=== PATIENT | male | born 1960 | race American Indian/Alaskan Native ===

== ENCOUNTER 2017-12-10 20:29 | Emergency (ER) | payer SELFPAY ==
[2017-12-10 21:51] VITALS: BP 148/106
== END 2017-12-11 01:30 | disposition left against medical advice (07) ==
LOC: ED 20:29
DX: Z04.1 Encounter for examination and observation following transport accident (principal); Z53.21 Procedure and treatment not carried out due to patient leaving prior to being seen by health care provider; V89.2XXA Person injured in unspecified motor-vehicle accident, traffic, initial encounter; Y93.89 Activity, other specified; Y99.8 Other external cause status; Y92.410 Unspecified street and highway as the place of occurrence of the external cause

== ENCOUNTER 2019-08-19 17:52 | Inpatient (IN) | payer OTHER ==
[2019-08-19] MEDS ORDERED: ONDANSETRON 4 MG ODT TAB PO ONE (18:05)
--- NOTE | 2019-08-19 18:06 | Event Note ---
ED Screening Note Date of service: 08/19/19 ED Screening Note: This initial assessment/diagnostic orders/clinical plan/treatment(s) is/are subject to change based on patients health status, clinical progression and re- assessment by fellow clinical providers in the ED. Further treatment and workup at subsequent clinical providers discretion. Patient/guardian urged not to elope from the ED as their condition may be serious if not clinically assessed and managed. Initial orders include: 59yo BM states that he has had diarrhea, vomiting and weakness for over a week. 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
[2019-08-19] MEDS ORDERED: ONDANSETRON 4 MG ODT TAB ONE (18:07)
[2019-08-19 19:22] LABS: Basophils % (Auto) 0.4 % (0.0-1.8); Hematocrit 43.6 % (35.5-45.6); Hemoglobin 14.5 gm/dl (11.8-15.2); Lymphocytes # (Auto) 1.1 K/mm3 (1.2-5.4); Lymphocytes % (Auto) 12.2 % (13.4-35.0); Mean Corpuscular HGB Conc 33 % (32-34); Mean Corpuscular Volume 78 fl (84-94); Monocytes % (Auto) 11.6 % (0.0-7.3); Platelet Count 237 K/mm3 (140-440); Red Cell Distribution Width 13.8 % (13.2-15.2)
[2019-08-19 19:42] LABS: Albumin 3.7 g/dL (3.9-5); Calcium 9.3 mg/dL (8.4-10.2)
[2019-08-19] MEDS ORDERED: SODIUM CHLORIDE 0.9% 1000 ML IV SOLN IV ONE (20:09)
[2019-08-19] MEDS ORDERED: POTASSIUM CHLORIDE ER 20 MEQ TAB PO ONE (20:11)
[2019-08-19] MEDS ORDERED: levoFLOXacin 500 MG TAB PO ONE (20:11)
[2019-08-19] MEDS ORDERED: MAGNESIUM SULFATE 2 GM/50 ML BAG IV ONE (20:11)
--- NOTE | 2019-08-19 20:13 | Emergency Department Report ---
ED General Adult HPI - General Chief complaint: Weakness Stated complaint: VOMITTING/DIAHERRA/FEVER Time Seen by Provider: 08/19/19 19:59 Source: patient, RN notes reviewed Mode of arrival: Ambulatory Limitations: No Limitations - History of Present Illness Initial comments: This is a 59-year-old gentleman. This patient is not known to this provider pr eviously. He does not have a primary care doctor. He has no chronic medical conditions that he is aware of. He presents to the ER with one month of nausea, vomiting, diarrhea, intermittent fevers, chills, malaise and weakness. No recent travel, denies IV drug use, states only one sexual partner in the past year, no complaint of cough, no abdominal pain, he reports that he typically washes his hands after using the bathroom, and denies consumption of raw and/or undercooked food. He reports multiple episodes of nonbloody nonbilious emesis, and nonbloody diarrhea. He denies urinary symptoms. -: Gradual, week(s) Consistency: constant Improves with: rest Worsens with: eating - Related Data Previous Rx's Medication Instructions Recorded Last Taken Type ALBUTEROL Inhaler (OR & NICU) 2 puff IH QID PRN #8.5 gram 08/22/19 Unknown Rx [ProAir HFA Inhaler] Azithromycin [Zithromax TAB] 500 mg PO QDAY #5 tablet 08/22/19 Unknown Rx cefUROXime [Ceftin] 500 mg PO Q12H 7 Days 08/22/19 Unknown Rx Allergies Allergy/AdvReac Type Severity Reaction Status Date / Time No Known Allergies Allergy Unverified 12/10/17 21:45 ED Review of Systems ROS: Stated complaint: VOMITTING/DIAHERRA/FEVER Other details as noted in HPI Constitutional: fever, malaise, weakness Eyes: denies: eye discharge ENT: denies: congestion Respiratory: denies: wheezing Cardiovascular: denies: syncope Gastrointestinal: nausea, vomiting, diarrhea Genitourinary: denies: dysuria Musculoskeletal: myalgia Skin: denies: lesions Neurological: weakness Hematological/Lymphatic: denies: easy bleeding ED Past Medical Hx - Past Medical History Previous Medical History?: Yes Hx Hypertension: Yes - Surgical History Past Surgical History?: No - Social History Smoking Status: Never Smoker Substance Use Type: None - Medications Home Medications: Home Medications Medication Instructions Recorded Confirmed Last Taken Type ALBUTEROL Inhaler (OR & NICU) 2 puff IH QID PRN #8.5 gram 08/22/19 Unknown Rx [ProAir HFA Inhaler] Azithromycin [Zithromax TAB] 500 mg PO QDAY #5 tablet 08/22/19 Unknown Rx cefUROXime [Ceftin] 500 mg PO Q12H 7 Days 08/22/19 Unknown Rx ED Physical Exam - General Limitations: No Limitations General appearance: alert, anxious, in distress - Head Head exam: Present: atraumatic, normocephalic - Eye Eye exam: Present: normal appearance, EOMI. Absent: nystagmus - ENT ENT exam: Present: normal orophraynx, mucous membranes dry, normal external ear exam - Neck Neck exam: Present: normal inspection - Respiratory Respiratory exam: Present: normal lung sounds bilaterally. Absent: respiratory distress - Cardiovascular Cardiovascular Exam: Present: normal rhythm, tachycardia, normal heart sounds. Absent: systolic murmur, diastolic murmur, rubs, gallop - GI/Abdominal GI/Abdominal exam: Present: soft. Absent: distended, tenderness, guarding, rebound, rigid, pulsatile mass - Rectal Rectal exam: Present: deferred - Extremities Exam Extremities exam: Present: normal inspection, full ROM, other (2+ pulses noted in the bilateral upper, lower extremities. There is no long bone tenderness. Musculoskeletal compartments are soft. The pelvis is stable.). Absent: pedal edema, calf tenderness - Back Exam Back exam: Present: normal inspection, full ROM. Absent: tenderness, CVA tenderness (R), CVA tenderness (L), paraspinal tenderness, vertebral tenderness - Neurological Exam Neurological exam: Present: alert, normal gait, other (there is no facial droop. The tongue is midline. Extraocular movements are intact bilaterally. Patient speaking in full complete sentences. Shoulder shrug is intact bilaterally. Hearing is grossly intact bilaterally. Visual acuity intact to finger counting and color perception at a close distance. 5/5 strength 4 extremities. Sensation intact to light touch in 4 extremities.) - Psychiatric Psychiatric exam: Present: anxious - Skin Skin exam: Present: warm, dry, intact, normal color. Absent: rash ED Course Vital Signs 08/19/19 08/19/19 18:02 21:55 Temperature 98.9 F Pulse Rate 129 H 103 H Respiratory 20 18 Rate Blood Pressure 125/89 Blood Pressure 147/89 [Right] O2 Sat by Pulse 96 95 Oximetry ED Medical Decision Making - Lab Data Result diagrams: 08/22/19 10:10 08/22/19 10:10 Vital Signs 08/19/19 18:02 Temperature 98.9 F Pulse Rate 129 H Respiratory 20 Rate Blood Pressure 125/89 O2 Sat by Pulse 96 Oximetry Lab Results 08/19/19 08/19/19 08/19/19 Range/Units 18:33 18:33 20:17 WBC 8.9 (4.5-11.0) K/mm3 RBC 5.60 H (3.65-5.03) M/mm3 Hgb 14.5 (11.8-15.2) gm/dl Hct 43.6 (35.5-45.6) % MCV 78 L (84-94) fl MCH 26 L (28-32) pg MCHC 33 (32-34) % RDW 13.8 (13.2-15.2) % Plt Count 237 (140-440) K/mm3 Lymph % (Auto) 12.2 L (13.4-35.0) % [place] % (Auto) 11.6 H (0.0-7.3) % Eos % (Auto) 0.0 (0.0-4.3) % Baso % (Auto) 0.4 (0.0-1.8) % Lymph # 1.1 L (1.2-5.4) K/mm3 [place] # 1.0 H (0.0-0.8) K/mm3 Eos # 0.0 (0.0-0.4) K/mm3 Baso # 0.0 (0.0-0.1) K/mm3 Seg Neutrophils % 75.8 H (40.0-70.0) % Seg Neutrophils # 6.7 (1.8-7.7) K/mm3 PT 12.8 (12.2-14.9) Sec. INR 0.97 (0.87-1.13) APTT 37.2 H (24.2-36.6) Sec. Sodium 123 L (137-145) mmol/L Potassium 3.0 L (3.6-5.0) mmol/L Chloride 85.5 L (98-107) mmol/L Carbon Dioxide 14 L (22-30) mmol/L Anion Gap 27 mmol/L BUN 35 H (9-20) mg/dL Creatinine 2.3 H (0.8-1.5) mg/dL Estimated GFR 36 ml/min BUN/Creatinine Ratio 15 % Glucose 142 H (75-100) mg/dL Lactic Acid (0.7-2.0) mmol/L Uric Acid (3.5-7.6) mg/dL Calcium 9.3 (8.4-10.2) mg/dL Magnesium (1.7-2.3) mg/dL Total Bilirubin 0.40 (0.1-1.2) mg/dL AST 706 H (5-40) units/L ALT 732 H (7-56) units/L Alkaline Phosphatase 211 H (35-129) units/L Total Creatine Kinase (55-170) units/L Total Protein 9.4 H (6.3-8.2) g/dL Albumin 3.7 L (3.9-5) g/dL Albumin/Globulin Ratio 0.6 % TSH (0.270-4.200) mlU/mL Urine Color (Yellow) Urine Turbidity (Clear) Urine pH (5.0-7.0) Ur Specific [place] (1.003-1.030) Urine Protein (Negative) mg/dL Urine Glucose (UA) (Negative) mg/dL Urine Ketones (Negative) mg/dL Urine Blood (Negative) Urine Nitrite (Negative) Urine Bilirubin (Negative) Urine Urobilinogen (<2.0) mg/dL Ur Leukocyte Esterase (Negative) Urine WBC (Auto) (0.0-6.0) /HPF Urine RBC (Auto) (0.0-6.0) /HPF U Epithel Cells (Auto) (0-13.0) /HPF Urine Bacteria (Auto) (Negative) /HPF Urine WBC Clumps /HPF Urine Mucus /HPF Urine Yeast (Budding) /HPF Urine Osmolality Mosm/kg Urine Creatinine (0.1-20.0) mg/dL Urine Sodium mmol/L Salicylates (2.8-20.0) mg/dL Acetaminophen (10.0-30.0) ug/mL Hepatitis A IgM Ab (NonReactive) Hep Bs Antigen (Negative) Hep B Core IgM Ab (NonReactive) Hepatitis C Antibody (NonReactive) 08/19/19 08/19/1908/19/19 Range/Units 20:17 20:17 20:17 WBC (4.5-11.0) K/mm3 RBC (3.65-5.03) M/mm3 Hgb (11.8-15.2) gm/dl Hct (35.5-45.6) % MCV (84-94) fl MCH (28-32) pg MCHC (32-34) % RDW (13.2-15.2) % Plt Count (140-440) K/mm3 Lymph % (Auto) (13.4-35.0) % [place] % (Auto) (0.0-7.3) % Eos % (Auto) (0.0-4.3) % Baso % (Auto) (0.0-1.8) % Lymph # (1.2-5.4) K/mm3 [place] # (0.0-0.8) K/mm3 Eos # (0.0-0.4) K/mm3 Baso # (0.0-0.1) K/mm3 Seg Neutrophils % (40.0-70.0) % Seg Neutrophils # (1.8-7.7) K/mm3 PT (12.2-14.9) Sec. INR (0.87-1.13) APTT (24.2-36.6) Sec. Sodium (137-145) mmol/L Potassium (3.6-5.0) mmol/L Chloride (98-107) mmol/L Carbon Dioxide (22-30) mmol/L Anion Gap mmol/L BUN (9-20) mg/dL Creatinine (0.8-1.5) mg/dL Estimated GFR ml/min BUN/Creatinine Ratio % Glucose (75-100) mg/dL Lactic Acid 1.80 (0.7-2.0) mmol/L Uric Acid 12.4 H (3.5-7.6) mg/dL Calcium (8.4-10.2) mg/dL Magnesium 2.70 H (1.7-2.3) mg/dL Total Bilirubin (0.1-1.2) mg/dL AST (5-40) units/L ALT (7-56) units/L Alkaline Phosphatase (35-129) units/L Total Creatine Kinase 1567 H (55-170) units/L Total Protein (6.3-8.2) g/dL Albumin (3.9-5) g/dL Albumin/Globulin Ratio % TSH 0.848 (0.270-4.200) mlU/mL Urine Color (Yellow) Urine Turbidity (Clear) Urine pH (5.0-7.0) Ur Specific [place] (1.003-1.030) Urine Protein (Negative) mg/dL Urine Glucose (UA) (Negative) mg/dL Urine Ketones (Negative) mg/dL Urine Blood (Negative) Urine Nitrite (Negative) Urine Bilirubin (Negative) Urine Urobilinogen (<2.0) mg/dL Ur Leukocyte Esterase (Negative) Urine WBC (Auto) (0.0-6.0) /HPF Urine RBC (Auto) (0.0-6.0) /HPF U Epithel Cells (Auto) (0-13.0) /HPF Urine Bacteria (Auto) (Negative) /HPF Urine WBC Clumps /HPF Urine Mucus /HPF Urine Yeast (Budding) /HPF Urine Osmolality Mosm/kg Urine Creatinine (0.1-20.0) mg/dL Urine Sodium mmol/L Salicylates (2.8-20.0) mg/dL Acetaminophen (10.0-30.0) ug/mL Hepatitis A IgM Ab (NonReactive) Hep Bs Antigen (Negative) Hep B Core IgM Ab (NonReactive) Hepatitis C Antibody (NonReactive) 08/19/19 08/19/19 08/19/19 Range/Units 20:17 20:17 20:17 WBC (4.5-11.0) K/mm3 RBC (3.65-5.03) M/mm3 Hgb (11.8-15.2) gm/dl Hct (35.5-45.6) % MCV (84-94) fl MCH (28-32) pg MCHC (32-34) % RDW (13.2-15.2) % Plt Count (140-440) K/mm3 Lymph % (Auto) (13.4-35.0) % [place] % (Auto) (0.0-7.3) % Eos % (Auto) (0.0-4.3) % Baso % (Auto) (0.0-1.8) % Lymph # (1.2-5.4) K/mm3 [place] # (0.0-0.8) K/mm3 Eos # (0.0-0.4) K/mm3 Baso # (0.0-0.1) K/mm3 Seg Neutrophils % (40.0-70.0) % Seg Neutrophils # (1.8-7.7) K/mm3 PT (12.2-14.9) Sec. INR (0.87-1.13) APTT (24.2-36.6) Sec. Sodium (137-145) mmol/L Potassium (3.6-5.0) mmol/L Chloride (98-107) mmol/L Carbon Dioxide (22-30) mmol/L Anion Gap mmol/L BUN (9-20) mg/dL Creatinine (0.8-1.5) mg/dL Estimated GFR ml/min BUN/Creatinine Ratio % Glucose (75-100) mg/dL Lactic Acid (0.7-2.0) mmol/L Uric Acid (3.5-7.6) mg/dL Calcium (8.4-10.2) mg/dL Magnesium (1.7-2.3) mg/dL Total Bilirubin (0.1-1.2) mg/dL AST (5-40) units/L ALT (7-56) units/L Alkaline Phosphatase (35-129) units/L Total Creatine Kinase (55-170) units/L Total Protein (6.3-8.2) g/dL Albumin (3.9-5) g/dL Albumin/Globulin Ratio % TSH (0.270-4.200) mlU/mL Urine Color (Yellow) Urine Turbidity (Clear) Urine pH (5.0-7.0) Ur Specific [place] (1.003-1.030) Urine Protein (Negative) mg/dL Urine Glucose (UA) (Negative) mg/dL Urine Ketones (Negative) mg/dL Urine Blood (Negative) Urine Nitrite (Negative) Urine Bilirubin (Negative) Urine Urobilinogen (<2.0) mg/dL Ur Leukocyte Esterase (Negative) Urine WBC (Auto) (0.0-6.0) /HPF Urine RBC (Auto) (0.0-6.0) /HPF U Epithel Cells (Auto) (0-13.0) /HPF Urine Bacteria (Auto) (Negative) /HPF Urine WBC Clumps /HPF Urine Mucus /HPF Urine Yeast (Budding) /HPF Urine Osmolality Mosm/kg Urine Creatinine (0.1-20.0) mg/dL Urine Sodium mmol/L Salicylates < 0.3 L (2.8-20.0) mg/dL Acetaminophen < 5.0 L (10.0-30.0) ug/mL Hepatitis A IgM Ab Non-reactive (NonReactive) Hep Bs Antigen Non-reactive (Negative) Hep B Core IgM Ab Non-reactive (NonReactive) Hepatitis C Antibody Non-reactive (NonReactive) 08/19/19 08/19/19 Range/Units Unknown Unknown WBC (4.5-11.0) K/mm3 RBC (3.65-5.03) M/mm3 Hgb (11.8-15.2) gm/dl Hct (35.5-45.6) % MCV (84-94) fl MCH (28-32) pg MCHC (32-34) % RDW (13.2-15.2) % Plt Count (140-440) K/mm3 Lymph % (Auto) (13.4-35.0) % [place] % (Auto) (0.0-7.3) % Eos % (Auto) (0.0-4.3) % Baso % (Auto) (0.0-1.8) % Lymph # (1.2-5.4) K/mm3 [place] # (0.0-0.8) K/mm3 Eos # (0.0-0.4) K/mm3 Baso # (0.0-0.1) K/mm3 Seg Neutrophils % (40.0-70.0) % Seg Neutrophils # (1.8-7.7) K/mm3 PT (12.2-14.9) Sec. INR (0.87-1.13) APTT (24.2-36.6) Sec. Sodium (137-145) mmol/L Potassium (3.6-5.0) mmol/L Chloride (98-107) mmol/L Carbon Dioxide (22-30) mmol/L Anion Gap mmol/L BUN (9-20) mg/dL Creatinine (0.8-1.5) mg/dL Estimated GFR ml/min BUN/Creatinine Ratio % Glucose (75-100) mg/dL Lactic Acid (0.7-2.0) mmol/L Uric Acid (3.5-7.6) mg/dL Calcium (8.4-10.2) mg/dL Magnesium (1.7-2.3) mg/dL Total Bilirubin (0.1-1.2) mg/dL AST (5-40) units/L ALT (7-56) units/L Alkaline Phosphatase (35-129) units/L Total Creatine Kinase (55-170) units/L Total Protein (6.3-8.2) g/dL Albumin (3.9-5) g/dL Albumin/Globulin Ratio % TSH (0.270-4.200) mlU/mL Urine Color [place] (Yellow) Urine Turbidity Cloudy (Clear) Urine pH 5.0 (5.0-7.0) Ur Specific [place] 1.020 (1.003-1.030) Urine Protein >500 (Negative) mg/dL Urine Glucose (UA) Neg (Negative) mg/dL Urine Ketones Neg (Negative) mg/dL Urine Blood Lg (Negative) Urine Nitrite Neg (Negative) Urine Bilirubin Neg (Negative) Urine Urobilinogen < 2.0 (<2.0) mg/dL Ur Leukocyte Esterase Neg (Negative) Urine WBC (Auto) 17.0 H (0.0-6.0) /HPF Urine RBC (Auto) 6.0 (0.0-6.0) /HPF U Epithel Cells (Auto) 6.0 (0-13.0) /HPF Urine Bacteria (Auto) 1+ (Negative) /HPF Urine WBC Clumps 2+ /HPF Urine Mucus Few /HPF Urine Yeast (Budding) 2+ /HPF Urine Osmolality 342 Mosm/kg Urine Creatinine 463.6 H (0.1-20.0) mg/dL Urine Sodium 10 mmol/L Salicylates (2.8-20.0) mg/dL Acetaminophen (10.0-30.0) ug/mL Hepatitis A IgM Ab (NonReactive) Hep Bs Antigen (Negative) Hep B Core IgM Ab (NonReactive) Hepatitis C Antibody (NonReactive) - EKG Data -: EKG Interpreted by Sd Rate: tachycardia - EKG Data When compared to previous EKG there are: previous EKG unavailable 08/19/19 21:18 There is no prior EKG available for comparison. The EKG shows a sinus tachycardia, left axis deviation, QTC is prolonged, left ventricular hypertrophy, atrial enlargement, the EKG is abnormal, the EKG is not consistent with a stemi - Radiology Data Radiology results: report reviewed, image reviewed Print Report Referring Physician: DENISE NERI Patient Name: MOLLY HERRERA Date of : 1960 Sex: Male Report Date: 2019-08-19 Report Status: Finalized Findings [facility] [address] [place] [address] XRay Report Signed Patient: MOLLY HERRERA JR MR# : [id number] : 1960 Acct:[id number] Age/Sex: 59 / M ADM Date: 08/19/19 Loc: ED Attending Dr: Ordering Physician: DENISE NERI MD Date of Service: 08/19/19 Procedure(s): XR chest 1V ap Accession Number(s): [id number] cc: DENISE NERI MD Fluoro Time In Minutes: CHEST 1 VIEW 08/19/2019 8:36 PM INDICATION / CLINICAL INFORMATION: n/v/d weak sepsis. COMPARISON: None available. FINDINGS: SUPPORT DEVICES: None. HEART / MEDIASTINUM: No significant abnormality. LUNGS / PLEURA: There is hazy parenchymal opacity in the left midlung. The right lung is clear. No pneumothorax. ADDITIONAL FINDINGS: No significant additional findings. IMPRESSION: 1. Hazy left midlung parenchymal opacity most likely reflecting developing infectious or inflammatory process. Signer Name: Kale Duncan MD Signed: 08/19/2019 8:53 PM Workstation Name: [id number] Transcribed By: CARLOS Dictated By: Kale Duncan MD Electronically Authenticated By: Kale Duncan MD Signed Date/Time: 08/19/192052 - Medical Decision Making Differential diagnosis, including not limited to: Viral syndrome, hepatitis, HIV, pneumonia, urinary tract infection, dehydration, transaminitis, influenza- like illness, C. difficile Assessment and plan: 59-year-old gentleman with 1 month of painless nausea, vomiting, diarrhea, malaise and fatigue. He is afebrile, with a history of fever at home, relieved with [id number] antipyretics, found to be tachycardic, tachypnea, with evidence of end organ dysfunction, manifest by transaminitis, renal insufficiency. He has given verbal consent for HIV testing and additional testing. He is amenable to hospitalization for further diagnostic evaluation, and supportive care. Patient will be resuscitated according to sepsis pathway. IV fluids, empiric antibiotics resuscitative measures are ordered. Case presented to Hospital physician, Dr. Sanchez, who has accepted the patient to the medical service. Critical care attestation.: If time is entered above; I have spent that time in minutes in the direct care of this critically ill patient, excluding procedure time. ED Disposition Clinical Impression: SIRS (systemic inflammatory response syndrome), Acute renal failure, Hyponatremia, Transaminitis, Hypokalemia Disposition: [id number] OP ADMIT IP TO THIS HOSP Is pt being admited?: Yes Condition: Fair
[2019-08-19 20:45] LABS: INR 0.97 (0.87-1.13)
[2019-08-19] MEDS ORDERED: ONDANSETRON 4 MG/2 ML INJ IV PRN (20:45)
[2019-08-19] MEDS ORDERED: ALBUTEROL 2.5 MG/3 ML NEBU IH PRN (20:45)
[2019-08-19] MEDS ORDERED: ACETAMINOPHEN 325 MG TAB PO PRN (20:45)
[2019-08-19 20:47] LABS: Partial Thromboplastin Time 37.2 Sec. (24.2-36.6)
[2019-08-19 20:48] LABS: Bacteria,Urine 1+ /HPF (Negative); Bilirubin,Urine NEG (Negative); Blood,Urine LG (Negative); Color,Urine Amber (Yellow); Mucus,Urine FEW /HPF; Urobilinogen,Urine < 2.0 mg/dL (<2.0)
[2019-08-19 20:49] LABS: Protein,Urine >500 mg/dL (Negative)
[2019-08-19 20:52] LABS: Uric Acid 12.4 mg/dL (3.5-7.6)
[2019-08-19 20:53] LABS: Creatinine,Urine 463.6 mg/dL (0.1-20.0)
--- NOTE | 2019-08-19 20:58 | XRay Report ---
CHEST 1 VIEW 08/19/2019 8:36 PM INDICATION / CLINICAL INFORMATION: n/v/d weak sepsis. COMPARISON: None available. FINDINGS: SUPPORT DEVICES: None. HEART / MEDIASTINUM: No significant abnormality. LUNGS / PLEURA: There is hazy parenchymal opacity in the left midlung. The right lung is clear. No pn eumothorax. ADDITIONAL FINDINGS: No significant additional findings. IMPRESSION: 1. Hazy left midlung parenchymal opacity most likely reflecting developing infectious or inflammatory process. Signer Name: Kale Duncan MD Signed: 08/19/2019 8:53 PM Workstation Name: [id number]
[2019-08-19] MEDS ORDERED: metroNIDAZOLE/NS 500 MG/100 ML 500 MG/100 ML BAG IV SCH (21:00)
[2019-08-19] MEDS ORDERED: SODIUM BICARB 8.4% 50 MEQ/50 ML SYRINGE IV ONE (21:00)
[2019-08-19 21:03] LABS: Hepatitis B Surface Antigen Non-Reactive (Negative); Hepatitis C Virus Antibody Non-Reactive (NonReactive)
[2019-08-19] MEDS: POTASSIUM CHLORIDE 10 MEQ 10 MEQ/100 ML BAG IV SCH (21:05)
[2019-08-19 21:20] LABS: Albumin 3.8 g/dL (3.9-5)
[2019-08-19 21:21] LABS: Bilirubin,Direct < 0.2 mg/dL (0-0.2)
[2019-08-19 21:32] LABS: Alanine Aminotransferase 779 units/L (7-56)
--- NOTE | 2019-08-19 21:43 | History and Physical Report ---
History of Present Illness Date of admission: 08/19/19 20:45 Chief complaint: I dont feel good History of present illness: 59 YO Male with HTN presents to ED for evaluation. Pt states that he has experienced multiple episodes of vomiting, nausea, diarrhea, subjective fever, chills, malaise and weakness over the past 1 month with persistent symptoms over the same time frame. Pt also reports 20lbs weight loss over the past 6 weeks. Pt transported to [facility] via private vehicle. Pt seen and evaluated in ED and found to have FRANKLIN, Acidosis, and elevated Liver Function tests. Pt placed in observation status, and admitted to medical floor. Pt denies chest pain, palpitations, trauma, BRBPR, ingestion of food/water from new or different sources, HIV risk factory, IV drug use, or known ill contacts. No prior admission for review. No medication listed at time of admission for reconciliation. Past History Past Medical History: other (see hpi) Past Surgical History: No surgical history, Other (reviewed) Social history: single. denies: smoking, alcohol abuse, prescription drug abuse Family history: hypertension Medications and Allergies Allergies Allergy/AdvReac Type Severity Reaction Status Date / Time No Known Allergies Allergy Unverified 12/10/17 21:45 Active Meds: Active Medications Acetaminophen (Tylenol) 650 mg PO Q4H PRN PRN Reason: Pain MILD(1-3)/Fever >100.5/TONG Albuterol (Proventil) 2.5 mg IH Q4HRT PRN PRN Reason: Shortness Of Breath Metronidazole (Flagyl 500 Mg/100 Ml) 500 mg in 100 mls @ 100 mls/hr IV NOW MICHELINE; Protocol Potassium Chloride (Kcl 10meq/100ml) 10 meq in 100 mls @ 100 mls/hr IV Q1H MICHELINE Stop: 08/20/19 00:59 Last Admin: 08/19/19 21:05 Dose: 100 mls/hr Documented by: Sodium Chloride (Nacl 0.9% 1000 Ml) 1,000 mls @ 100 mls/hr IV DIRECT MICHELINE Ondansetron HCl (Zofran) 4 mg IV Q8H PRN PRN Reason: Nausea And Vomiting Sodium Chloride (Sodium Chloride Flush Syringe 10 Ml) 10 ml IV BID MICHELINE Sodium Chloride (Sodium Chloride Flush Syringe 10 Ml) 10 ml IV PRN PRN PRN Reason: LINE FLUSH Review of Systems Constitutional: weight loss, fever, weakness, malaise, no weight gain, no chills Ears, nose, mouth and throat: no ear pain, no ear discharge, no decreased hearing Cardiovascular: no chest pain, no orthopnea, no palpitations Respiratory: no cough, no cough with sputum, no excessive sputum, no shortness of breath Gastrointestinal: nausea, vomiting, diarrhea, no abdominal pain, no constipation, no change in bowel habits Genitourinary Male: no hematuria, no flank pain, no discharge, no urinary frequency, no nocturia Rectal: no pain, no incontinence, no bleeding Musculoskeletal: no neck stiffness, no neck pain, no shooting arm pain, no arm numbness/tingling, no low back pain Integumentary: no rash, no pruritis, no redness, no sores, no jaundice Neurological: no transient paralysis, no weakness, no numbness, no tingling, no tremors Psychiatric: no anxiety, no memory loss, no change in sleep habits, no insomnia, no change in libido Endocrine: no cold intolerance, no polyphagia, no polydipsia Hematologic/Lymphatic: no easy bruising, no easy bleeding Allergic/Immunologic: no urticaria, no allergic rhinitis Exam - Constitutional Vitals: Temp Pulse Resp BP Pulse Ox 98.9 F 129 H 20 125/89 96 08/19/19 18:02 08/19/19 18:02 08/19/19 18:02 08/19/19 18:02 08/19/19 18:02 General appearance: Present: mild distress, cachectic - EENT Eyes: Present: PERRL ENT: hearing intact, clear oral mucosa - Neck Neck: Present: supple, normal ROM - Respiratory Respiratory effort: normal Respiratory: bilateral: CTA - Cardiovascular Heart Sounds: Present: S1 & S2. Absent: rub, click - Extremities Extremities: pulses symmetrical, No edema Peripheral Pulses: within normal limits - Abdominal General gastrointestinal: Present: soft, non-tender, non-distended, normal bowel sounds Male genitourinary: Present: normal - Integumentary Integumentary: Present: clear, warm, dry - Musculoskeletal Musculoskeletal: gait normal, strength equal bilaterally - Psychiatric Psychiatric: appropriate mood/affect, intact judgment & insight - Neurologic Neurologic: CNII-XII intact, moves all extremities Results - Labs CBC & Chem 7: 08/19/19 18:33 08/19/19 18:33 Labs: Abnormal lab results 08/19/19 08/19/19 08/19/19 Range/Units 18:33 18:33 20:17 RBC 5.60 H (3.65-5.03) M/mm3 MCV 78 L (84-94) fl MCH 26 L (28-32) pg Lymph % (Auto) 12.2 L (13.4-35.0) % Coleman % (Auto) 11.6 H (0.0-7.3) % Lymph # 1.1 L (1.2-5.4) K/mm3 Coleman # 1.0 H (0.0-0.8) K/mm3 Seg Neutrophils % 75.8 H (40.0-70.0) % APTT 37.2 H (24.2-36.6) Sec. Sodium 123 L (137-145) mmol/L Potassium 3.0 L (3.6-5.0) mmol/L Chloride 85.5 L (98-107) mmol/L Carbon Dioxide 14 L (22-30) mmol/L BUN 35 H (9-20) mg/dL Creatinine 2.3 H (0.8-1.5) mg/dL Glucose 142 H (75-100) mg/dL Uric Acid (3.5-7.6) mg/dL Magnesium (1.7-2.3) mg/dL AST 706 H (5-40) units/L ALT 732 H (7-56) units/L Alkaline Phosphatase 211 H (35-129) units/L Total Creatine Kinase (55-170) units/L Total Protein 9.4 H (6.3-8.2) g/dL Albumin 3.7 L (3.9-5) g/dL Urine WBC (Auto) (0.0-6.0) /HPF Urine Creatinine (0.1-20.0) mg/dL Salicylates (2.8-20.0) mg/dL Acetaminophen (10.0-30.0) ug/mL 08/19/19 08/19/19 08/19/19 Range/Units 20:17 20:17 20:17 RBC (3.65-5.03) M/mm3 MCV (84-94) fl MCH (28-32) pg Lymph % (Auto) (13.4-35.0) % Coleman % (Auto) (0.0-7.3) % Lymph # (1.2-5.4) K/mm3 Coleman # (0.0-0.8) K/mm3 Seg Neutrophils % (40.0-70.0) % APTT (24.2-36.6) Sec. Sodium (137-145) mmol/L Potassium (3.6-5.0) mmol/L Chloride (98-107) mmol/L Carbon Dioxide (22-30) mmol/L BUN (9-20) mg/dL Creatinine (0.8-1.5) mg/dL Glucose (75-100) mg/dL Uric Acid 12.4 H (3.5-7.6) mg/dL Magnesium 2.70 H (1.7-2.3) mg/dL AST (5-40) units/L ALT (7-56) units/L Alkaline Phosphatase (35-129) units/L Total Creatine Kinase 1567 H (55-170) units/L Total Protein (6.3-8.2) g/dL Albumin (3.9-5) g/dL Urine WBC (Auto) (0.0-6.0) /HPF Urine Creatinine (0.1-20.0) mg/dL Salicylates < 0.3 L (2.8-20.0) mg/dL Acetaminophen < 5.0 L (10.0-30.0) ug/mL 08/19/19 08/19/19 08/19/19 Range/Units 20:40 Unknown Unknown RBC (3.65-5.03) M/mm3 MCV (84-94) fl MCH (28-32) pg Lymph % (Auto) (13.4-35.0) % Coleman % (Auto) (0.0-7.3) % Lymph # (1.2-5.4) K/mm3 Coleman # (0.0-0.8) K/mm3 Seg Neutrophils % (40.0-70.0) % APTT (24.2-36.6) Sec. Sodium (137-145) mmol/L Potassium (3.6-5.0) mmol/L Chloride (98-107) mmol/L Carbon Dioxide (22-30) mmol/L BUN (9-20) mg/dL Creatinine (0.8-1.5) mg/dL Glucose (75-100) mg/dL Uric Acid (3.5-7.6) mg/dL Magnesium (1.7-2.3) mg/dL AST 742 H (5-40) units/L ALT 779 H (7-56) units/L Alkaline Phosphatase 218 H (35-129) units/L Total Creatine Kinase (55-170) units/L Total Protein 9.4 H (6.3-8.2) g/dL Albumin 3.8 L (3.9-5) g/dL Urine WBC (Auto) 17.0 H (0.0-6.0) /HPF Urine Creatinine 463.6 H (0.1-20.0) mg/dL Salicylates (2.8-20.0) mg/dL Acetaminophen (10.0-30.0) ug/mL Assessment and Plan - Patient Problems (1) FRANKLIN (acute kidney injury) Current Visit: Yes Status: Acute Plan to address problem: IVF resuscitation therapy, monitor uop q shift, repeat bmp, monitor uop q shift, urine electrolytes, HIV serology, (2) Acidosis Current Visit: Yes Status: Acute Plan to address problem: IVF resuscitation therapy, IV bicarbonate therapy. repeat bmp. (3) Hypokalemia Current Visit: Yes Status: Acute Plan to address problem: Repleted in ED, repeat bmp (4) Elevated liver enzymes Current Visit: Yes Status: Acute Plan to address problem: Hepatitis panel, LFT, supportive care, HIV testing, (5) DVT prophylaxis Current Visit: Yes Status: Acute Plan to address problem: SCD to BLE while in bed, Pt ambulatory
[2019-08-19] MEDS ORDERED: ONDANSETRON 4 MG/2 ML INJ ONE (22:05)
[2019-08-19] MEDS: SODIUM CHLORIDE 0.9% 1000 ML 1,000 ML IV SCH (23:35)
[2019-08-20] MEDS: POTASSIUM CHLORIDE 10 MEQ 10 MEQ/100 ML BAG IV SCH ×6 (00:56→16:01)
--- NOTE | 2019-08-20 01:24 | Event Note ---
Date: 08/20/19 Notified about patient with recurrent fever. Appears that current work up is to rule out C.DIFF. Lab review shows possible UTI. Hx of ETOH use, two beers a day but none in a week . will start on Emperic abx, while awaiting further work up Check labs.
[2019-08-20] MEDS: cefTRIAXone/NS 1 GM/50 ML 1 GM/50 ML BAG IV SCH ×2 (02:23→16:08)
[2019-08-20 04:23] LABS: Hematocrit 36.7 % (35.5-45.6); Hemoglobin 12.4 gm/dl (11.8-15.2); Mean Corpuscular HGB Conc 34 % (32-34); Mean Corpuscular Volume 78 fl (84-94); Platelet Count 184 K/mm3 (140-440); Red Blood Count 4.74 M/mm3 (3.65-5.03); Red Cell Distribution Width 13.8 % (13.2-15.2)
[2019-08-20 04:50] LABS: Albumin 2.9 g/dL (3.9-5); Calcium 8.1 mg/dL (8.4-10.2)
[2019-08-20] MEDS ORDERED: POTASSIUM CHLORIDE ER 20 MEQ TAB PO ONE (05:46)
[2019-08-20] MEDS: metroNIDAZOLE/NS 500 MG/100 ML 500 MG/100 ML BAG IV SCH ×3 (05:53→21:46)
[2019-08-20] MEDS: VANCOMYCIN 250 MG/10 ML ORAL LIQD PO SCH ×4 (05:53→19:20)
--- NOTE | 2019-08-20 10:33 | Progress Note ---
Assessment and Plan Assessment and plan: Acute kidney injury IVF resuscitation therapy, monitor uop q shift, repeat bmp, monitor uop q shift, urine electrolytes, HIV serology, Acidosis IVF resuscitation therapy, IV bicarbonate therapy. repeat bmp. Hypokalemia Repeat bmp Hyponatremia Repeat in am Elevated liver enzymes Hepatitis panel, LFT, supportive care, HIV testing, Consult GI weight loss for 1 month HIV ordered DVT prophylaxis SCD to BLE while in bed, Pt ambulatory History Interval history: Weight loss, nausea, vomiting, diarrhea, fever weakness all for 1 month Hospitalist Physical - Physical exam Narrative exam: Gen: Not in acute distress, lying in bed, HEENT: Normocephalic, atraumatic Neck: supple, no JVD Heart: S1 and S2 reg, no murmurs, rubs or gallop Lungs: Clear to auscultation, Abd: soft, non tender, non distended, normal BS, Ext: No edema, no clubbing, no cyanosis Neuro: Awake, alert, oriented X 3, normal speech. moves all ext - Constitutional Vitals: Temp Pulse Resp BP Pulse Ox 98.4 F 82 16 123/80 98 08/20/19 05:45 08/20/19 05:45 08/20/19 05:45 08/20/19 05:45 08/20/19 05:45 General appearance: Present: mild distress, cachectic Results - Labs CBC & Chem 7: 08/21/19 07:27 08/21/19 07:27 Labs: Laboratory Last Values WBC 6.5 K/mm3 (4.5-11.0) 08/20/19 04:12 RBC 4.74 M/mm3 (3.65-5.03) 08/20/19 04:12 Hgb 12.4 gm/dl (11.8-15.2) 08/20/19 04:12 Hct 36.7 % (35.5-45.6) D 08/20/19 04:12 MCV 78 fl (84-94) L 08/20/19 04:12 MCH 26 pg (28-32) L 08/20/19 04:12 MCHC 34 % (32-34) 08/20/19 04:12 RDW 13.8 % (13.2-15.2) 08/20/19 04:12 Plt Count 184 K/mm3 (140-440) 08/20/19 04:12 Lymph % (Auto) 12.2 % (13.4-35.0) L 08/19/19 18:33 [place] % (Auto) 11.6 % (0.0-7.3) H 08/19/19 18:33 Eos % (Auto) 0.0 % (0.0-4.3) 08/19/19 18:33 Baso % (Auto) 0.4 % (0.0-1.8) 08/19/19 18:33 Lymph # 1.1 K/mm3 (1.2-5.4) L 08/19/19 18:33 [place] # 1.0 K/mm3 (0.0-0.8) H 08/19/19 18:33 Eos # 0.0 K/mm3 (0.0-0.4) 08/19/19 18:33 Baso # 0.0 K/mm3 (0.0-0.1) 08/19/19 18:33 Seg Neutrophils % 75.8 % (40.0-70.0) H 08/19/19 18:33 Seg Neutrophils # 6.7 K/mm3 (1.8-7.7) 08/19/19 18:33 PT 12.8 Sec. (12.2-14.9) 08/19/19 20:17 INR 0.97 (0.87-1.13) 08/19/19 20:17 APTT 37.2 Sec. (24.2-36.6) H 08/19/19 20:17 Sodium 130 mmol/L (137-145) L D 08/20/19 04:12 Potassium 2.8 mmol/L (3.6-5.0) L* 08/20/19 04:12 Chloride 97.8 mmol/L (98-107) L 08/20/19 04:12 Carbon Dioxide 14 mmol/L (22-30) L 08/20/19 04:12 Anion Gap 21 mmol/L 08/20/19 04:12 BUN 31 mg/dL (9-20) H 08/20/19 04:12 Creatinine 1.8 mg/dL (0.8-1.5) H 08/20/19 04:12 Estimated GFR 47 ml/min 08/20/19 04:12 BUN/Creatinine Ratio 17 % 08/20/19 04:12 Glucose 118 mg/dL (75-100) H 08/20/19 04:12 Lactic Acid 1.80 mmol/L (0.7-2.0) 08/19/19 23:05 Uric Acid 12.4 mg/dL (3.5-7.6) H 08/19/19 20:17 Calcium 8.1 mg/dL (8.4-10.2) L 08/20/19 04:12 Magnesium 2.70 mg/dL (1.7-2.3) H 08/19/19 20:17 Total Bilirubin 0.30 mg/dL (0.1-1.2) 08/20/19 04:12 Direct Bilirubin < 0.2 mg/dL (0-0.2) 08/19/19 20:40 Indirect Bilirubin 0.2 mg/dL 08/19/19 20:40 AST 566 units/L (5-40) H 08/20/19 04:12 ALT 598 units/L (7-56) H 08/20/19 04:12 Alkaline Phosphatase 168 units/L (35-129) H 08/20/19 04:12 Total Creatine Kinase 1548 units/L (55-170) H 08/20/19 04:12 Total Protein 7.6 g/dL (6.3-8.2) 08/20/19 04:12 Albumin 2.9 g/dL (3.9-5) L 08/20/19 04:12 Albumin/Globulin Ratio 0.6 % 08/20/19 04:12 TSH 0.848 mlU/mL (0.270-4.200) 08/19/19 20:17 Urine Color Brigitte (Yellow) 08/19/19 Unknown Urine Turbidity Cloudy (Clear) 08/19/19 Unknown Urine pH 5.0 (5.0-7.0) 08/19/19 Unknown Ur Specific [place] 1.020 (1.003-1.030) 08/19/19 Unknown Urine Protein >500 mg/dL (Negative) 08/19/19 Unknown Urine Glucose (UA) Neg mg/dL (Negative) 08/19/19 Unknown Urine Ketones Neg mg/dL (Negative) 08/19/19 Unknown Urine Blood Lg (Negative) 08/19/19 Unknown Urine Nitrite Neg (Negative) 08/19/19 Unknown Urine Bilirubin Neg (Negative) 08/19/19 Unknown Urine Urobilinogen < 2.0 mg/dL (<2.0) 08/19/19 Unknown Ur Leukocyte Esterase Neg (Negative) 08/19/19 Unknown Urine WBC (Auto) 17.0 /HPF (0.0-6.0) H 08/19/19 Unknown Urine RBC (Auto) 6.0 /HPF (0.0-6.0) 08/19/19 Unknown U Epithel Cells (Auto) 6.0 /HPF (0-13.0) 08/19/19 Unknown Urine Bacteria (Auto) 1+ /HPF (Negative) 08/19/19 Unknown Urine WBC Clumps 2+ /HPF 08/19/19 Unknown Urine Mucus Few /HPF 08/19/19 Unknown Urine Yeast (Budding) 2+ /HPF 08/19/19 Unknown Urine Osmolality 342 Mosm/kg 08/19/19 Unknown Urine Creatinine 463.6 mg/dL (0.1-20.0) H 08/19/19 Unknown Urine Sodium 10 mmol/L 08/19/19 Unknown Salicylates < 0.3 mg/dL (2.8-20.0) L 08/19/19 20:17 Acetaminophen < 5.0 ug/mL (10.0-30.0) L 08/19/19 20:17 C. difficile Toxin A&B Cancelled 08/19/19 Unknown Hepatitis A IgM Ab Non-reactive (NonReactive) 08/19/19 20:17 Hep Bs Antigen Non-reactive (Negative) 08/19/19 20:17 Hep B Core IgM Ab Non-reactive (NonReactive) 08/19/19 20:17 Hepatitis C Antibody Non-reactive (NonReactive) 08/19/19 20:17 Influenza A (Rapid) Negative (Negative) 08/19/19 Unknown Influenza B (Rapid) Negative (Negative) 08/19/19 Unknown Active Medications - Current Medications Current Medications: Generic Name Dose Route Start Last Admin Trade Name Freq PRN Reason Stop Dose Admin Acetaminophen 650 mg 08/19/19 20:45 08/19/19 23:35 Tylenol PO 650 mg Q4H PRN Administration Pain MILD(1-3)/Fever >100.5/TONG Albuterol 2.5 mg 08/19/19 20:45 Proventil IH Q4HRT PRN Shortness Of Breath Sodium Chloride 1,000 mls @ 100 mls/hr 08/19/19 21:00 08/19/19 23:35 Nacl 0.9% 1000 Ml IV 100 mls/hr DIRECT MICHELINE Administration Metronidazole 500 mg in 100 mls @ 100 mls/hr 08/20/19 06:00 08/20/19 05:53 Flagyl 500 Mg/100 Ml IV 100 mls/hr Q8HR MICHELINE Administration Protocol Ceftriaxone Sodium 1 gm in 50 mls @ 100 mls/hr 08/20/19 01:34 08/20/19 02:23 Rocephin/Ns 1 Gm/50 Ml IV 100 mls/hr Q24HR MICHELINE Administration Protocol Potassium Chloride 10 meq in 100 mls @ 100 mls/hr 08/20/19 10:00 08/20/19 10:12 Kcl 10meq/100ml IV 08/20/19 13:59 100 mls/hr Q1H MICHELINE Administration Ondansetron HCl 4 mg 08/19/19 20:45 08/19/19 22:09 Zofran IV 4 mg Q8H PRN Administration Nausea And Vomiting Sodium Chloride 10 ml 08/19/19 22:00 08/20/19 10:12 Sodium Chloride Flush Syringe 10 Ml IV 10 ml BID MICHELINE Administration Sodium Chloride 10 ml 08/19/19 20:45 Sodium Chloride Flush Syringe 10 Ml IV PRN PRN LINE FLUSH Vancomycin HCl 125 mg 08/20/19 06:00 08/20/19 05:53 Vancomycin Po PO 125 mg Q6HR MICHELINE Administration
[2019-08-20] MEDS: HEPARIN 5,000 UNIT/1 ML VIAL SUB-Q SCH ×2 (15:55→21:57)
--- NOTE | 2019-08-20 16:07 | Gastroenterology Consultation ---
History of Present Illness - Reason for Consult Consult date: 08/20/19 Abnormal LFTs, Weight Loss Requesting physician: DENISE TSANG - History of Present Illness The patient is a 59 yo male with no PMHx except HTN. He was admitted with a 1 month hx of weight loss (20 pounds), anorexia, intermittent emesis, and diarrhea. The symptoms were out of the blue per the patient, and he had no preceeding symptoms. On admit, he had a fever, but also abnl kidney/liver function, and severe hyponatremia. He denies significant abdominal pain or anorexia, and had just finished his entire lunch before my exam. He has no blood in the stool, and has had a negative colonoscopy (x 2) and EGD (x 1) as part of his routine health maintenance at the [facility]. 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 He denies CP, cough, or SOB, but the CXray on admit showed L-sided haziness. He has not had an episode of diarrhea since being on the medical floor. There are no new medications, and he denies OTC herbals. He has no family hx of GI cancer. He is a former smoker, and consumes mild EtOH (<10 beers per week). Past History Past Medical History: hypertension Past Surgical History: No surgical history Social history: single. denies: smoking, alcohol abuse, prescription drug abuse Family history: hypertension. denies: cancer Medications and Allergies Allergies Allergy/AdvReac Type Severity Reaction Status Date / Time No Known Allergies Allergy Unverified 12/10/17 21:45 Active Meds: Active Medications Acetaminophen (Tylenol) 650 mg PO Q6H PRN PRN Reason: Pain MILD(1-3)/Fever >100.5/TONG Albuterol (Proventil) 2.5 mg IH Q4HRT PRN PRN Reason: Shortness Of Breath Heparin Sodium (Porcine) (Heparin) 5,000 unit SUB-Q Q12HR [facility] Last Admin: 08/20/19 15:55 Dose: 5,000 unit Documented by: Sodium Chloride (Nacl 0.9% 1000 Ml) 1,000 mls @ 100 mls/hr IV DIRECT [facility] Last Admin: 08/19/19 23:35 Dose: 100 mls/hr Documented by: Metronidazole (Flagyl 500 Mg/100 Ml) 500 mg in 100 mls @ 100 mls/hr IV Q8HR [facility]; Protocol Last Admin: 08/20/19 14:28 Dose: 100 mls/hr Documented by: Ceftriaxone Sodium (Rocephin/Ns 1 Gm/50 Ml) 1 gm in 50 mls @ 100 mls/hr IV Q24HR [facility]; Protocol Last Admin: 08/20/19 02:23 Dose: 100 mls/hr Documented by: Ondansetron HCl (Zofran) 4 mg IV Q8H PRN PRN Reason: Nausea And Vomiting Last Admin: 08/19/19 22:09 Dose: 4 mg Documented by: Sodium Chloride (Sodium Chloride Flush Syringe 10 Ml) 10 ml IV BID [facility] Last Admin: 08/20/19 10:12 Dose: 10 ml Documented by: Sodium Chloride (Sodium Chloride Flush Syringe 10 Ml) 10 ml IV PRN PRN PRN Reason: LINE FLUSH Vancomycin HCl (Vancomycin Po) 125 mg PO Q6HR [facility] Last Admin: 08/20/19 14:23 Dose: Not Given Documented by: I HAVE REVIEWED AND RECONCILED HOME MEDICATIONS Review of Systems - Review of Systems All systems: negative (as noted in the HPI.) Exam - Constitutional Vital Signs: Temp Pulse Resp BP Pulse Ox 99.3 F 97 H 19 138/83 97 08/20/19 10:27 08/20/19 10:27 08/20/19 10:27 08/20/19 10:27 08/20/19 11:37 General appearance: no acute distress - EENT Eyes: PERRL, EOM intact ENT: hearing intact, clear oral mucosa, no thrush - Neck Neck: supple, normal ROM - Respiratory Respiratory effort: normal Respiratory: bilateral: CTA - Cardiovascular Rhythm: regular Heart Sounds: Present: S1 & S2 Extremities: no ischemia, No edema - Gastrointestinal General gastrointestinal: Present: soft, non-tender, non-distended - Integumentary Integumentary: Present: clear (Tattoo present.), warm, dry - Neurologic Neurological: alert and oriented x3 - Labs CBC & Chem 7: 08/20/19 04:12 08/20/19 14:43 Lab Results: Laboratory Results - last 24 hr 08/19/19 08/19/19 08/19/19 18:33 18:33 20:17 WBC 8.9 RBC 5.60 H Hgb 14.5 Hct 43.6 MCV 78 L MCH 26 L MCHC 33 RDW 13.8 Plt Count 237 Lymph % (Auto) 12.2 L [place] % (Auto) 11.6 H Eos % (Auto) 0.0 Baso % (Auto) 0.4 Lymph # 1.1 L [place] # 1.0 H Eos # 0.0 Baso # 0.0 Seg Neutrophils % 75.8 H Seg Neutrophils # 6.7 PT 12.8 INR 0.97 APTT 37.2 H Sodium 123 L Potassium 3.0 L Chloride 85.5 L Carbon Dioxide 14 L Anion Gap 27 BUN 35 H Creatinine 2.3 H Estimated GFR 36 BUN/Creatinine Ratio 15 Glucose 142 H Lactic Acid Uric Acid Calcium 9.3 Magnesium Total Bilirubin 0.40 Direct Bilirubin Indirect Bilirubin AST 706 H ALT 732 H Alkaline Phosphatase 211 H Total Creatine Kinase Total Protein 9.4 H Albumin 3.7 L Albumin/Globulin Ratio 0.6 TSH Urine Color Urine Turbidity Urine pH Ur Specific [place] Urine Protein Urine Glucose (UA) Urine Ketones Urine Blood Urine Nitrite Urine Bilirubin Urine Urobilinogen Ur Leukocyte Esterase Urine WBC (Auto) Urine RBC (Auto) U Epithel Cells (Auto) Urine Bacteria (Auto) Urine WBC Clumps Urine Mucus Urine Yeast (Budding) Urine Osmolality Urine Creatinine Urine Sodium Salicylates Acetaminophen C. difficile Toxin A&B Hepatitis A IgM Ab Hep Bs Antigen Hep B Core IgM Ab Hepatitis C Antibody Influenza A (Rapid) Influenza B (Rapid) 08/19/19 08/19/19 08/19/19 20:17 20:17 20:17 WBC RBC Hgb Hct MCV MCH MCHC RDW Plt Count Lymph % (Auto) [place] % (Auto) Eos % (Auto) Baso % (Auto) Lymph # [place] # Eos # Baso # Seg Neutrophils % Seg Neutrophils # PT INR APTT Sodium Potassium Chloride Carbon Dioxide Anion Gap BUN Creatinine Estimated GFR BUN/Creatinine Ratio Glucose Lactic Acid 1.80 Uric Acid 12.4 H Calcium Magnesium 2.70 H Total Bilirubin Direct Bilirubin Indirect Bilirubin AST ALT Alkaline Phosphatase Total Creatine Kinase 1567 H Total Protein Albumin Albumin/Globulin Ratio TSH 0.848 Urine Color Urine Turbidity Urine pH Ur Specific [place] Urine Protein Urine Glucose (UA) Urine Ketones Urine Blood Urine Nitrite Urine Bilirubin Urine Urobilinogen Ur Leukocyte Esterase Urine WBC (Auto) Urine RBC (Auto) U Epithel Cells (Auto) Urine Bacteria (Auto) Urine WBC Clumps Urine Mucus Urine Yeast (Budding) Urine Osmolality Urine Creatinine Urine Sodium Salicylates Acetaminophen C. difficile Toxin A&B Hepatitis A IgM Ab Hep Bs Antigen Hep B Core IgM Ab Hepatitis C Antibody Influenza A (Rapid) Influenza B (Rapid) 08/19/19 08/19/19 08/19/19 20:17 20:17 20:17 WBC RBC Hgb Hct MCV MCH MCHC RDW Plt Count Lymph % (Auto) [place] % (Auto) Eos % (Auto) Baso % (Auto) Lymph # [place] # Eos # Baso # Seg Neutrophils % Seg Neutrophils # PT INR APTT Sodium Potassium Chloride Carbon Dioxide Anion Gap BUN Creatinine Estimated GFR BUN/Creatinine Ratio Glucose Lactic Acid Uric Acid Calcium Magnesium Total Bilirubin Direct Bilirubin Indirect Bilirubin AST ALT Alkaline Phosphatase Total Creatine Kinase Total Protein Albumin Albumin/Globulin Ratio TSH Urine Color Urine Turbidity Urine pH Ur Specific [place] Urine Protein Urine Glucose (UA) Urine Ketones Urine Blood Urine Nitrite Urine Bilirubin Urine Urobilinogen Ur Leukocyte Esterase Urine WBC (Auto) Urine RBC (Auto) U Epithel Cells (Auto) Urine Bacteria (Auto) Urine WBC Clumps Urine Mucus Urine Yeast (Budding) Urine Osmolality Urine Creatinine Urine Sodium Salicylates < 0.3 L Acetaminophen < 5.0 L C. difficile Toxin A&B Hepatitis A IgM Ab Non-reactive Hep Bs Antigen Non-reactive Hep B Core IgM Ab Non-reactive Hepatitis C Antibody Non-reactive Influenza A (Rapid) Influenza B (Rapid) 08/19/19 08/19/19 08/19/19 20:40 23:05 Unknown WBC RBC Hgb Hct MCV MCH MCHC RDW Plt Count Lymph % (Auto) [place] % (Auto) Eos % (Auto) Baso % (Auto) Lymph # [place] # Eos # Baso # Seg Neutrophils % Seg Neutrophils # PT INR APTT Sodium Potassium Chloride Carbon Dioxide Anion Gap BUN Creatinine Estimated GFR BUN/Creatinine Ratio Glucose Lactic Acid 1.80 Uric Acid Calcium Magnesium Total Bilirubin 0.40 Direct Bilirubin < 0.2 Indirect Bilirubin 0.2 AST 742 H ALT 779 H Alkaline Phosphatase 218 H Total Creatine Kinase Total Protein 9.4 H Albumin 3.8 L Albumin/Globulin Ratio 0.7 TSH Urine Color [place]itte Urine Turbidity Cloudy Urine pH 5.0 Ur Specific [place] 1.020 Urine Protein >500 Urine Glucose (UA) Neg Urine Ketones Neg Urine Blood Lg Urine Nitrite Neg Urine Bilirubin Neg Urine Urobilinogen < 2.0 Ur Leukocyte Esterase Neg Urine WBC (Auto) 17.0 H Urine RBC (Auto) 6.0 U Epithel Cells (Auto) 6.0 Urine Bacteria (Auto) 1+ Urine WBC Clumps 2+ Urine Mucus Few Urine Yeast (Budding) 2+ Urine Osmolality Urine Creatinine Urine Sodium Salicylates Acetaminophen C. difficile Toxin A&B Hepatitis A IgM Ab Hep Bs Antigen Hep B Core IgM Ab Hepatitis C Antibody Influenza A (Rapid) Influenza B (Rapid) 08/19/19 08/19/19 08/20/19 Unknown Unknown 04:12 WBC RBC Hgb Hct MCV MCH MCHC RDW Plt Count Lymph % (Auto) [place] % (Auto) Eos % (Auto) Baso % (Auto) Lymph # [place] # Eos # Baso # Seg Neutrophils % Seg Neutrophils # PT INR APTT Sodium Potassium Chloride Carbon Dioxide Anion Gap BUN Creatinine Estimated GFR BUN/Creatinine Ratio Glucose Lactic Acid Uric Acid Calcium Magnesium Total Bilirubin Direct Bilirubin Indirect Bilirubin AST ALT Alkaline Phosphatase Total Creatine Kinase 1548 H Total Protein Albumin Albumin/Globulin Ratio TSH Urine Color Urine Turbidity Urine pH Ur Specific [place] Urine Protein Urine Glucose (UA) Urine Ketones Urine Blood Urine Nitrite Urine Bilirubin Urine Urobilinogen Ur Leukocyte Esterase Urine WBC (Auto) Urine RBC (Auto) U Epithel Cells (Auto) Urine Bacteria (Auto) Urine WBC Clumps Urine Mucus Urine Yeast (Budding) Urine Osmolality 342 Urine Creatinine 463.6 H Urine Sodium 10 Salicylates Acetaminophen C. difficile Toxin A&B Cancelled Hepatitis A IgM Ab Hep Bs Antigen Hep B Core IgM Ab Hepatitis C Antibody Influenza A (Rapid) Negative Influenza B (Rapid) Negative 08/20/19 08/20/19 08/20/19 04:12 04:12 14:43 WBC 6.5 RBC 4.74 Hgb 12.4 Hct 36.7 D MCV 78 L MCH 26 L MCHC 34 RDW 13.8 Plt Count 184 Lymph % (Auto) [place] % (Auto) Eos % (Auto) Baso % (Auto) Lymph # [place] # Eos # Baso # Seg Neutrophils % Seg Neutrophils # PT INR APTT Sodium 130 L D Potassium 2.8 L* 3.7 D Chloride 97.8 L Carbon Dioxide 14 L Anion Gap 21 BUN 31 H Creatinine 1.8 H Estimated GFR 47 BUN/Creatinine Ratio 17 Glucose 118 H Lactic Acid Uric Acid Calcium 8.1 L Magnesium Total Bilirubin 0.30 Direct Bilirubin Indirect Bilirubin AST 566 H ALT 598 H Alkaline Phosphatase 168 H Total Creatine Kinase Total Protein 7.6 Albumin 2.9 L Albumin/Globulin Ratio 0.6 TSH Urine Color Urine Turbidity Urine pH Ur Specific [place] Urine Protein Urine Glucose (UA) Urine Ketones Urine Blood Urine Nitrite Urine Bilirubin Urine Urobilinogen Ur Leukocyte Esterase Urine WBC (Auto) Urine RBC (Auto) U Epithel Cells (Auto) Urine Bacteria (Auto) Urine WBC Clumps Urine Mucus Urine Yeast (Budding) Urine Osmolality Urine Creatinine Urine Sodium Salicylates Acetaminophen C. difficile Toxin A&B Hepatitis A IgM Ab Hep Bs Antigen Hep B Core IgM Ab Hepatitis C Antibody Influenza A (Rapid) Influenza B (Rapid) Assessment and Plan - Patient Problems (1) Elevated liver enzymes Current Visit: Yes Status: Acute Plan to address problem: - With fevers, diarrhea, and abnl kidney function/hyponatremia, I suspect atyp ical infectious (TB, HIV, tick illness, fungal disease) or CA (like small cell lung cancer, or renal cancer). - Will send RPR and QuantaferonGOLD; HIV pending and hepatitis panel negative. - Will order CT C/A/P tomorrow (with contrast, assuming kidney function continues to improve rapidly). - Further recs after above studies return. - Will check TSH.
[2019-08-20] MEDS: SODIUM CHLORIDE 0.9% 1000 ML 1,000 ML IV SCH (17:59)
--- NOTE | 2019-08-20 19:10 | Ultrasound Report ---
US abdomen limited INDICATION / CLINICAL INFORMATION: elevated LFT. COMPARISON: None available. FINDINGS: Gallbladder is unremarkable, with no stones. Common duct is normal in size. No significant gallbladde r wall thickening. Liver and pancreas are also negative. IMPRESSION: 1. Normal study. Signer Name: Duke Ellis MD Signed: 08/20/2019 7:06 PM Workstation Name: [email or web address]
[2019-08-20] MEDS: ACETAMINOPHEN 325 MG TAB PO PRN (22:02)
[2019-08-21] MEDS: VANCOMYCIN 250 MG/10 ML ORAL LIQD PO SCH ×4 (01:57→18:13)
[2019-08-21] MEDS: metroNIDAZOLE/NS 500 MG/100 ML 500 MG/100 ML BAG IV SCH ×3 (06:04→21:08)
[2019-08-21 08:40] LABS: Basophils % (Auto) 0.8 % (0.0-1.8); Eosinophils # (Auto) 0.1 K/mm3 (0.0-0.4); Eosinophils % (Auto) 2.4 % (0.0-4.3); Hemoglobin 11.9 gm/dl (11.8-15.2); Lymphocytes # (Auto) 0.9 K/mm3 (1.2-5.4); Lymphocytes % (Auto) 20.1 % (13.4-35.0); Mean Corpuscular HGB Conc 33 % (32-34); Mean Corpuscular Volume 78 fl (84-94); Monocytes # (Auto) 0.6 K/mm3 (0.0-0.8); Monocytes % (Auto) 13.3 % (0.0-7.3); Platelet Count 204 K/mm3 (140-440); Red Blood Count 4.64 M/mm3 (3.65-5.03); Red Cell Distribution Width 14.3 % (13.2-15.2)
[2019-08-21 08:49] LABS: Alanine Aminotransferase 397 units/L (7-56); Albumin 2.8 g/dL (3.9-5); BUN/Creatinine Ratio 23; Blood Urea Nitrogen 18 mg/dL (9-20); Calcium 8.4 mg/dL (8.4-10.2); Hemolysis Index 49
--- NOTE | 2019-08-21 09:23 | Consultation ---
History of Present Illness - Reason for Consult Consult date: 08/21/19 - History of Present Illness 59 yo M PMHx HTn who was admitted for 1 month of chronic abdominal complaints including anoxeria, nausea, vomiting, and diarrhea. Over this time frame he also notes a 20lb weight loss. Prior to the onset of these symptoms he was in his usual state of health. He has previous had normal screening upper and lower scopes. He was febrile on admission to 101.4 but has since been afebrile. He denies any known exposures to HIV, hepatitis, or HIV. 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 denies tick bites, not outdoors much. No recent international or domestic travel. He has never been homeless or incarcerated. Does not use IV drugs. He was also found to have elevated LFTs during his workup. Currently on vancomycin, ceftriaxone, and metronidazole. Cultures are negative thus far. Hepatitis and Influenza are negative. UA with mild pyuria. Imaging personally reviewed: CXR - hazy L midlung opacity CTC - L midlung consolidation CTAP - no infective focus. Review of systems: Bold if positive; otherwise negative GENERAL: fever, chills, weight loss, fatigue, night sweats EYES: blurry vision, eye pain HENT: headache, hearing loss, sore throat, dysphagia, sinus pain CARDIO: chest pain, palpitations, orthopnea PULM: shortness of breath, wheezing, cough, sputum, hemoptysis GI: nausea, vomiting, diarrhea, abdominal pain, blood in stool : urinary frequency, urgency, dysuria, urethral discharge MSK: joint pain, back pain, swelling SKIN: rash, redness HEME: easy bruising, bleeding Past History Past Medical History: hypertension Past Surgical History: No surgical history Social history: single. denies: smoking, alcohol abuse, prescription drug abuse Family history: hypertension. denies: cancer Medications and Allergies Allergies Allergy/AdvReac Type Severity Reaction Status Date / Time No Known Allergies Allergy Unverified 12/10/17 21:45 Active Meds: Active Medications Acetaminophen (Tylenol) 650 mg PO Q6H PRN PRN Reason: Pain MILD(1-3)/Fever >100.5/TONG Last Admin: 08/20/19 22:02 Dose: 650 mg Documented by: Albuterol (Proventil) 2.5 mg IH Q4HRT PRN PRN Reason: Shortness Of Breath Heparin Sodium (Porcine) (Heparin) 5,000 unit SUB-Q Q12HR [facility] Last Admin: 08/20/19 21:57 Dose: 5,000 unit Documented by: Sodium Chloride (Nacl 0.9% 1000 Ml) 1,000 mls @ 100 mls/hr IV DIRECT [facility] Last Admin: 08/20/19 17:59 Dose: 100 mls/hr Documented by: Metronidazole (Flagyl 500 Mg/100 Ml) 500 mg in 100 mls @ 100 mls/hr IV Q8HR SC [facility]; Protocol Last Admin: 08/21/19 06:04 Dose: 100 mls/hr Documented by: Ceftriaxone Sodium (Rocephin/Ns 1 Gm/50 Ml) 1 gm in 50 mls @ 100 mls/hr IV Q24HR MICHELINE; Protocol Last Admin: 08/20/19 16:08 Dose: Not Given Documented by: Ondansetron HCl (Zofran) 4 mg IV Q8H PRN PRN Reason: Nausea And Vomiting Last Admin: 08/19/19 22:09 Dose: 4 mg Documented by: Sodium Chloride (Sodium Chloride Flush Syringe 10 Ml) 10 ml IV BID [facility] Last Admin: 08/20/19 21:46 Dose: 10 ml Documented by: Sodium Chloride (Sodium Chloride Flush Syringe 10 Ml) 10 ml IV PRN PRN PRN Reason: LINE FLUSH Vancomycin HCl (Vancomycin Po) 125 mg PO Q6HR [facility] Last Admin: 08/21/19 06:05 Dose: 125 mg Documented by: Physical Examination - Physical Exam Narrative exam: General Normal appearance, well developed, no acute distress Eyes - PERRLA, EOM intact ENT - Moist mucous membranes, no lymphadenopathy Neck - No noticeable or palpable swelling, redness or rash around throat or on face Lymph Nodes - No lymphadenopathy Cardiovascular - RRR no m/r/g, no JVD, no carotid bruits Lungs - Clear to auscultation, no use of accessory muscles, no crackles or wheezes. Skin - No rashes, skin warm and dry, no erythematous areas Abdomen - Normal bowel sounds, abdomen soft and nontender Extremities - No edema, cyanosis or clubbing Musculoskeletal - 5/5 strength, normal range of motion, no swollen or erythematous joints. Neurological Alert and oriented x 3, CN 2-12 grossly intact. - Constitutional Vitals: Vital Signs Temp Pulse Resp BP Pulse Ox 98.0 F 76 18 136/93 95 08/21/19 06:27 08/21/19 06:27 08/21/19 06:27 08/21/19 06:27 08/21/19 06:27 Temperature -Last 24 Hours Temperature 98.0 F Temperature 98.2 F Temperature 100.1 F Temperature 99.3 F Results - Labs CBC & Chem 7: 08/21/19 07:27 08/21/19 07:27 Labs: Abnormal lab results 08/21/19 08/21/19 Range/Units 07:27 07:27 MCV 78 L (84-94) fl MCH 26 L (28-32) pg [place] % (Auto) 13.3 H (0.0-7.3) % Lymph # 0.9 L (1.2-5.4) K/mm3 Sodium 135 L (137-145) mmol/L Potassium 3.2 L (3.6-5.0) mmol/L Carbon Dioxide 15 L (22-30) mmol/L AST 218 H (5-40) units/L ALT 397 H (7-56) units/L Alkaline Phosphatase 149 H (35-129) units/L Albumin 2.8 L (3.9-5) g/dL Assessment and Plan Cultures Blood culture 08/19/2019 no growth to date Urine culture 08/19/2019 no growth to date Stool culture 08/19/2019 no growth to date Assessment: 59 yo M PMHx HTN admitted with a month of chronic abdominal pain and associated weight loss. 1. Weight loss - concern for malignancy, though patient has had fairly recent negative endoscopy screenings. 2. Fever - Minimal risk factors for infectious etiology. Hepatitis is negative. Was in the , as such has risk factor for TB. TB quantiferon is pending, no cavitary disease seen on XR but will get CT as mentioned previously. Follow up HIV serology. When blood cultures negative x48 hours would stop vancomycin, but continue ceftriaxone and metronidazole for now. Most likely secondary to pneumonia. 3. FRANKLIN - renally dose antibiotics 4. Transaminases 5. nausea and vomiting Recs: - Continue vancomycin with pharmacy dosing. Stop tomorrow if cultures negative x48 hours. - continue ceftriaxone and metronidazole. - Obtain CT c/a/p as ordered by GI - follow up HIV and TB quantiferon Thank you for the consult, we will continue to follow. Dr. Harding will be taking over tomorrow. [facility] M: [phone] O: [phone] F: [phone]
--- NOTE | 2019-08-21 10:36 | Cat Scan Report ---
CT CHEST, ABDOMEN, AND PELVIS WITH IV CONTRAST INDICATION / CLINICAL INFORMATION: weight loss. TECHNIQUE: Axial CT images were obtained through the chest, abdomen, and pelvis after 100 mL Omnipaque [address] All CT scans at this location are performed using CT dose reduction for ALARA by means of aut omated exposure control. COMPARISON: None available. FINDINGS: HEART: No significant abnormality. THORACIC AORTA: No significant abnormality. MEDIASTINUM and EMORY: There are multiple mildly enlarged mediastinal and left hilar lymph nodes, for example an AP window node measuring 11 mm short axis (series 2, image 32). LUNGS: There is patchy consolidative airspace opacity throughout the left upper lobe. The right lung is clear. PLEURA: Trace left pleural fluid. No pneumothorax. ADDITIONAL CHEST FINDINGS: None. LIVER: No significant abnormality. GALLBLADDER: No significant abnormality. BILE DUCTS: No significant abnormality. PANCREAS: No significant abnormality. SPLEEN: No significant abnormality. ADRENALS: No significant abnormality. RIGHT KIDNEY and URETER: No significant abnormality. LEFT KIDNEY and URETER: No significant abnormality. STOMACH and SMALL BOWEL: No significant abnormality. COLON: No significant abnormality. APPENDIX: No significant abnormality. PERITONEUM: No free fluid. No free air. No fluid collection. LYMPH NODES: No significant adenopathy. AORTA and ARTERIES: No significant abnormality. IVC and VEINS: No significant abnormality. URINARY BLADDER: No significant abnormality. REPRODUCTIVE ORGANS: No significant abnormality. ADDITIONAL FINDINGS: None. SKELETAL SYSTEM: A hemivertebra is noted in the mid lumbar spine, with associated dextroscoliosis. IMPRESSION: 1. Patchy consolidative airspace opacity throughout the left upper lobe most likely represents an inf ectious/inflammatory process. However, recommend follow-up radiograph in 6-12 weeks following treatme nt to ensure resolution. 2. Multiple mildly enlarged mediastinal and left hilar lymph nodes are nonspecific and may be reactiv e. 3. Trace left pleural effusion. 4. No acute process identified within the abdomen or pelvis. Signer Name: Ariana Haro MD Signed: 08/21/2019 10:31 AM Workstation Name: [id number]
[2019-08-21] MEDS: cefTRIAXone/NS 1 GM/50 ML 1 GM/50 ML BAG IV SCH (11:59)
[2019-08-21] MEDS: POTASSIUM CHLORIDE ER 20 MEQ TAB PO SCH ×2 (12:00→15:43)
[2019-08-21] MEDS: HEPARIN 5,000 UNIT/1 ML VIAL SUB-Q SCH ×2 (12:00→21:08)
--- NOTE | 2019-08-21 12:39 | Progress Note ---
Assessment and Plan Assessment and plan: 59 YO Male with HTN presents to ED for evaluation. Pt states that he has experienced multiple episodes of vomiting, nausea, diarrhea, subjective fever, chills, malaise and weakness over the past 1 month with persistent symptoms over the same time frame. Pt also reports 20lbs weight loss over the past 6 weeks. Pt transported to [facility] via private vehicle. Pt seen and evaluated in ED and found to have FRANKLIN, Acidosis, and elevated Liver Function tests. Pt placed in observation status, and admitted to medical floor. Pt denies chest pain, palpitations, trauma, BRBPR, ingestion of food/water from new or different sources, HIV risk factory, IV drug use, or known ill contacts. Acute kidney injury IVF resuscitation therapy, monitor uop q shift, now resolved urine electrolytes, HIV serology, Acidosis IVF resuscitation therapy, IV bicarbonate therapy. GAVINO patchy opacity Pulmonology consulted. ID Physician consulted Continue Rocephin and Vancomycin nausea, vomiting,Diarrhea Cont Flagyl Hypokalemia Repeat bmp Hyponatremia Repeat in am Elevated liver enzymes Improving Hepatitis panel, LFT, supportive care, HIV testing, Consulted GI, following Discussed with Dr. Gupta weight loss for 1 month HIV ordered DVT prophylaxis SCD to BLE while in bed, Pt ambulatory Keep NPO overnight incase Pulm recommends bronch History Interval history: Weight loss, nausea, vomiting, diarrhea, fever weakness all for 1 month Hospitalist Physical - Physical exam Narrative exam: Gen: Not in acute distress, lying in bed, HEENT: Normocephalic, atraumatic Neck: supple, no JVD Heart: S1 and S2 reg, no murmurs, rubs or gallop Lungs: Clear to auscultation, Abd: soft, non tender, non distended, normal BS, Ext: No edema, no clubbing, no cyanosis Neuro: Awake, alert, oriented X 3, normal speech. moves all ext - Constitutional Vitals: Temp Pulse Resp BP Pulse Ox 98.0 F 76 18 136/93 95 08/21/19 06:27 08/21/19 06:27 08/21/19 06:27 08/21/19 06:27 08/21/19 10:00 Results - Labs CBC & Chem 7: 08/21/19 07:27 08/21/19 07:27 Labs: Laboratory Last Values WBC 4.6 K/mm3 (4.5-11.0) 12/01/19 07:27 RBC 4.64 M/mm3 (3.65-5.03) 08/21/19 07:27 Hgb 11.9 gm/dl (11.8-15.2) 08/21/19 07:27 Hct 36.0 % (35.5-45.6) 08/21/19 07:27 MCV 78 fl (84-94) L 08/21/19 07:27 MCH 26 pg (28-32) L 08/21/19 07:27 MCHC 33 % (32-34) 08/21/19 07:27 RDW 14.3 % (13.2-15.2) 08/21/19 07:27 Plt Count 204 K/mm3 (140-440) 08/21/19 07:27 Lymph % (Auto) 20.1 % (13.4-35.0) 08/21/19 07:27 [place] % (Auto) 13.3 % (0.0-7.3) H 08/21/19 07:27 Eos % (Auto) 2.4 % (0.0-4.3) 08/21/19 07:27 Baso % (Auto) 0.8 % (0.0-1.8) 08/21/19 07:27 Lymph # 0.9 K/mm3 (1.2-5.4) L 08/21/19 07:27 [place] # 0.6 K/mm3 (0.0-0.8) 08/21/19 07:27 Eos # 0.1 K/mm3 (0.0-0.4) 08/21/19 07:27 Baso # 0.0 K/mm3 (0.0-0.1) 08/21/19 07:27 Seg Neutrophils % 63.4 % (40.0-70.0) 08/21/19 07:27 Seg Neutrophils # 2.9 K/mm3 (1.8-7.7) 08/21/19 07:27 PT 12.8 Sec. (12.2-14.9) 08/19/19 20:17 INR 0.97 (0.87-1.13) 08/19/19 20:17 APTT 37.2 Sec. (24.2-36.6) H 08/19/19 20:17 Sodium 135 mmol/L (137-145) L 08/21/19 07:27 Potassium 3.2 mmol/L (3.6-5.0) L 08/21/19 07:27 Chloride 102.8 mmol/L (98-107) 08/21/19 07:27 Carbon Dioxide 15 mmol/L (22-30) L 08/21/19 07:27 Anion Gap 20 mmol/L 08/21/19 07:27 BUN 18 mg/dL (9-20) 08/21/19 07:27 Creatinine 0.8 mg/dL (0.8-1.5) D 08/21/19 07:27 Estimated GFR > 60 ml/min 08/21/19 07:27 BUN/Creatinine Ratio 23 % 08/21/19 07:27 Glucose 96 mg/dL (75-100) 08/21/19 07:27 Lactic Acid 1.80 mmol/L (0.7-2.0) 08/19/19 23:05 Uric Acid 12.4 mg/dL (3.5-7.6) H 08/19/19 20:17 Calcium 8.4 mg/dL (8.4-10.2) 08/21/19 07:27 Magnesium 2.70 mg/dL (1.7-2.3) H 08/19/19 20:17 Total Bilirubin 0.30 mg/dL (0.1-1.2) 08/21/19 07:27 Direct Bilirubin < 0.2 mg/dL (0-0.2) 08/19/19 20:40 Indirect Bilirubin 0.2 mg/dL 08/19/19 20:40 AST 218 units/L (5-40) H 08/21/19 07:27 ALT 397 units/L (7-56) H 08/21/19 07:27 Alkaline Phosphatase 149 units/L (35-129) H 08/21/19 07:27 Total Creatine Kinase 1548 units/L (55-170) H 08/20/19 04:12 Total Protein 7.3 g/dL (6.3-8.2) 08/21/19 07:27 Albumin 2.8 g/dL (3.9-5) L 08/21/19 07:27 Albumin/Globulin Ratio 0.6 % 08/21/19 07:27 TSH 0.848 mlU/mL (0.270-4.200) 08/19/19 20:17 Urine Color Brigitte (Yellow) 08/19/19 Unknown Urine Turbidity Cloudy (Clear) 08/19/19 Unknown Urine pH 5.0 (5.0-7.0) 08/19/19 Unknown Ur Specific Brothers 1.020 (1.003-1.030) 08/19/19 Unknown Urine Protein >500 mg/dL (Negative) 08/19/19 Unknown Urine Glucose (UA) Neg mg/dL (Negative) 08/19/19 Unknown Urine Ketones Neg mg/dL (Negative) 08/19/19 Unknown Urine Blood Lg (Negative) 08/19/19 Unknown Urine Nitrite Neg (Negative) 08/19/19 Unknown Urine Bilirubin Neg (Negative) 08/19/19 Unknown Urine Urobilinogen < 2.0 mg/dL (<2.0) 08/19/19 Unknown Ur Leukocyte Esterase Neg (Negative) 08/19/19 Unknown Urine WBC (Auto) 17.0 /HPF (0.0-6.0) H 08/19/19 Unknown Urine RBC (Auto) 6.0 /HPF (0.0-6.0) 08/19/19 Unknown U Epithel Cells (Auto) 6.0 /HPF (0-13.0) 08/19/19 Unknown Urine Bacteria (Auto) 1+ /HPF (Negative) 08/19/19 Unknown Urine WBC Clumps 2+ /HPF 08/19/19 Unknown Urine Mucus Few /HPF 08/19/19 Unknown Urine Yeast (Budding) 2+ /HPF 08/19/19 Unknown Urine Osmolality 342 Mosm/kg 08/19/19 Unknown Urine Creatinine 463.6 mg/dL (0.1-20.0) H 08/19/19 Unknown Urine Sodium 10 mmol/L 08/19/19 Unknown Salicylates < 0.3 mg/dL (2.8-20.0) L 08/19/19 20:17 Acetaminophen < 5.0 ug/mL (10.0-30.0) L 08/19/19 20:17 C. difficile Tox (PCR) Negative (Negative) 08/20/19 Unknown C. difficile Toxin A&B Cancelled 08/19/19 Unknown Hepatitis A IgM Ab Non-reactive (NonReactive) 08/19/19 20:17 Hep Bs Antigen Non-reactive (Negative) 08/19/19 20:17 Hep B Core IgM Ab Non-reactive (NonReactive) 08/19/19 20:17 Hepatitis C Antibody Non-reactive (NonReactive) 08/19/19 20:17 Influenza A (Rapid) Negative (Negative) 08/19/19 Unknown Influenza B (Rapid) Negative (Negative) 08/19/19 Unknown Active Medications - Current Medications Current Medications: Generic Name Dose Route Start Last Admin Trade Name Freq PRN Reason Stop Dose Admin Acetaminophen 650 mg 08/20/19 14:38 08/20/19 22:02 Tylenol PO 650 mg Q6H PRN Administration Pain MILD(1-3)/Fever >100.5/TONG Albuterol 2.5 mg 08/19/19 20:45 Proventil IH Q4HRT PRN Shortness Of Breath Heparin Sodium (Porcine) 5,000 unit 08/20/19 15:00 08/21/19 12:00 Heparin SUB-Q 5,000 unit Q12HR MICHELINE Administration Sodium Chloride 1,000 mls @ 100 mls/hr 08/19/19 21:00 08/20/19 17:59 Nacl 0.9% 1000 Ml IV 100 mls/hr DIRECT MICHELINE Administration Metronidazole 500 mg in 100 mls @ 100 mls/hr 08/20/19 06:00 08/21/19 06:04 Flagyl 500 Mg/100 Ml IV 100 mls/hr Q8HR MICHELINE Administration Protocol Ceftriaxone Sodium 1 gm in 50 mls @ 100 mls/hr 08/20/19 01:34 08/21/19 11:59 Rocephin/Ns 1 Gm/50 Ml IV 100 mls/hr Q24HR MICHELINE Administration Protocol Ondansetron HCl 4 mg 08/19/19 20:45 08/19/19 22:09 Zofran IV 4 mg Q8H PRN Administration Nausea And Vomiting Potassium Chloride 40 meq 08/21/19 10:00 08/21/19 12:00 K-Dur PO 08/21/19 14:01 40 meq Q4H MICHELINE Administration Sodium Chloride 10 ml 08/19/19 22:00 08/21/19 12:01 Sodium Chloride Flush Syringe 10 Ml IV 10 ml BID MICHELINE Administration Sodium Chloride 10 ml 08/19/19 20:45 Sodium Chloride Flush Syringe 10 Ml IV PRN PRN LINE FLUSH Vancomycin HCl 125 mg 08/20/19 06:00 08/21/19 11:59 Vancomycin Po PO 125 mg Q6HR MICHELINE Administration Nutrition/Malnutrition Assess - Dietary Evaluation Nutrition/Malnutrition Findings: Nutrition Notes Start: 08/20/19 11:46 Freq: Status: Active Protocol: Document 08/20/19 11:47 LM (Rec: 08/20/19 12:07 LM [id number]) Nutrition Notes Need for Assessment generated from: MD Order,muck boss,MST Initial or Follow up Assessment Current Diagnosis Acute Kidney Injury Other Pertinent Diagnosis Acidosis, ETOH use, SIRS Current Diet Cardiac/con CHO Labs/Tests Na 130 K 2.8 BUN 31 Cr 1.8 Pertinent Medications KCl at 100 ml/hr Height 5 ft 10 in Weight 85.2 kg [place] Body Weight (kg) 75.45 BMI 26.9 Weight Status Appropriate Subjective/Other Information MD consult for poor oral intake and RN screen for MST. Pt difficult to understand. Pt stated he has good appetite and ate ate 50% of breakfast. Pt stated he has had no wt loss and his UBW is 160 lb (72 .7kg). Noted per MD report, pt has lost 20 lb in 6 weeks. Observed pt missing most of his teeth but pt says he has no difficulty chewing. Observed mild temporal wasting . Pt denied N/V. Burn Absent Trauma Absent GI Symptoms None Current % PO Fair (50-74%) Muscle Mass Mild Depletion (non-severe) #1 Nutrition Diagnosis Inadequate oral intake Etiology Acidosis, SIRS, FRANKLIN As Evidenced by Signs and Symptoms 50% intake of breakfast Is patient on ventilator? No Is Patient Ambulatory and/or Out of Bed Yes REE-([place]. Jeor-ambulatory/OOB) [ 2188.225 [id number]] Calculation Used for Recommendations [place] or Additional Notes Protein: 68-85g (0.8-1 g/kg) Fluid: 1 ml/kcal Nutrition Intervention Change Diet Order: Continue current Goal #1 Meet at least 75% of energy and protein needs Anticipated Discharge Needs: Regular diet Follow-Up By: 08/23/19 Additional Comments F/U for intakes, ONS needs
--- NOTE | 2019-08-21 14:12 | Gastroenterology Progress Note ---
Assessment and Plan - Patient Problems (1) Elevated liver enzymes Current Visit: Yes Status: Acute Plan to address problem: - With fevers, diarrhea, and abnl kidney function/hyponatremia, I suspect atypical infectious (TB, HIV, tick illness, fungal disease) or CA (like small cell lung cancer, or renal cancer). - RPR negative and QuantaferonGOLD/HIV pending and hepatitis panel negative. TSH WNL. - CT C/A/P showed LN in the chest with haziness (?atypical agent like Legionaries, TB, sarcoid, fungal infection). Liver (and rest of abdominal cavity WNL). - Since LFTs markedly improved, and pulmonary source of symptoms most likely, will sign off; Pulmonary/ID on the case per IMS. Please call if needed. Subjective Date of service: 08/21/19 Principal diagnosis: Abnormal Liver Enzymes Interval history: The patient denies N/V/abdominal pain/anorexia. Tolerating regular diet without pain or rectal bleed. Objective - Constitutional Vitals: Temp Pulse Resp BP Pulse Ox 98.0 F 76 18 136/93 95 08/21/19 06:27 08/21/19 06:27 08/21/19 06:27 08/21/19 06:27 08/21/19 10:00 General appearance: no acute distress - Respiratory Respiratory effort: normal Respiratory: bilateral: CTA - Cardiovascular Rhythm: regular Heart Sounds: Present: S1 & S2 - Gastrointestinal General gastrointestinal: Present: soft, non-tender, non-distended - Labs CBC & Chem 7: 08/21/19 07:27 08/21/19 07:27 Labs: Laboratory Results - last 24 hr 08/20/19 08/20/19 08/21/19 14:43 Unknown 07:27 WBC 4.6 RBC 4.64 Hgb 11.9 Hct 36.0 MCV 78 L MCH 26 L MCHC 33 RDW 14.3 Plt Count 204 Lymph % (Auto) 20.1 [place] % (Auto) 13.3 H Eos % (Auto) 2.4 Baso % (Auto) 0.8 Lymph # 0.9 L [place] # 0.6 Eos # 0.1 Baso # 0.0 Seg Neutrophils % 63.4 Seg Neutrophils # 2.9 Sodium Potassium 3.7 D Chloride Carbon Dioxide Anion Gap BUN Creatinine Estimated GFR BUN/Creatinine Ratio Glucose Calcium Total Bilirubin AST ALT Alkaline Phosphatase Total Protein Albumin Albumin/Globulin Ratio C. difficile Tox (PCR) Negative 08/21/19 07:27 WBC RBC Hgb Hct MCV MCH MCHC RDW Plt Count Lymph % (Auto) [place] % (Auto) Eos % (Auto) Baso % (Auto) Lymph # [place] # Eos # Baso # Seg Neutrophils % Seg Neutrophils # Sodium 135 L Potassium 3.2 L Chloride 102.8 Carbon Dioxide 15 L Anion Gap 20 BUN 18 Creatinine 0.8 D Estimated GFR > 60 BUN/Creatinine Ratio 23 Glucose 96 Calcium 8.4 Total Bilirubin 0.30 AST 218 H ALT 397 H Alkaline Phosphatase 149 H Total Protein 7.3 Albumin 2.8 L Albumin/Globulin Ratio 0.6 C. difficile Tox (PCR)
--- NOTE | 2019-08-21 14:57 | Consultation ---
History of Present Illness Consult date: 08/21/19 Requesting physician: DENISE TSANG Reason for consult: pneumonia (CAP) History of present illness: PULMONARY/CCM CONSULT NOTE (full dictation # [id number]) Please see dictated notes for full details Past History Past Medical History: hypertension Past Surgical History: No surgical history Social history: single. denies: smoking, alcohol abuse, prescription drug abuse Family history: hypertension. denies: cancer Medications and Allergies Allergies Allergy/AdvReac Type Severity Reaction Status Date / Time No Known Allergies Allergy Unverified 12/10/17 21:45 Active Meds: Active Medications Acetaminophen (Tylenol) 650 mg PO Q6H PRN PRN Reason: Pain MILD(1-3)/Fever >100.5/TONG Last Admin: 08/20/19 22:02 Dose: 650 mg Documented by: Albuterol (Proventil) 2.5 mg IH Q4HRT PRN PRN Reason: Shortness Of Breath Heparin Sodium (Porcine) (Heparin) 5,000 unit SUB-Q Q12HR MICHELINE Last Admin: 08/21/19 12:00 Dose: 5,000 unit Documented by: Sodium Chloride (Nacl 0.9% 1000 Ml) 1,000 mls @ 100 mls/hr IV DIRECT MICHELINE Last Admin: 08/20/19 17:59 Dose: 100 mls/hr Documented by: Metronidazole (Flagyl 500 Mg/100 Ml) 500 mg in 100 mls @ 100 mls/hr IV Q8HR MICHELINE; Protocol Last Admin: 08/21/19 06:04 Dose: 100 mls/hr Documented by: Ceftriaxone Sodium (Rocephin/Ns 1 Gm/50 Ml) 1 gm in 50 mls @ 100 mls/hr IV Q24HR MICHELINE; Protocol Last Admin: 08/21/19 11:59 Dose: 100 mls/hr Documented by: Ondansetron HCl (Zofran) 4 mg IV Q8H PRN PRN Reason: Nausea And Vomiting Last Admin: 08/19/19 22:09 Dose: 4 mg Documented by: Sodium Chloride (Sodium Chloride Flush Syringe 10 Ml) 10 ml IV BID MICHELINE Last Admin: 08/21/19 12:01 Dose: 10 ml Documented by: Sodium Chloride (Sodium Chloride Flush Syringe 10 Ml) 10 ml IV PRN PRN PRN Reason: LINE FLUSH Vancomycin HCl (Vancomycin Po) 125 mg PO Q6HR [facility] Last Admin: 08/21/19 11:59 Dose: 125 mg Documented by: Physical Examination Vital signs: Vital Signs Temp Pulse Resp BP Pulse Ox 98.9 F 129 H 20 125/89 96 08/19/19 18:02 08/19/19 18:02 08/19/19 18:02 08/19/19 18:02 08/19/19 18:02 Results - Laboratory Findings CBC and BMP: 08/22/19 10:10 08/22/19 10:10 PT/INR, D-dimer PT 12.8 Sec. (12.2-14.9) 08/19/19 20:17 INR 0.97 (0.87-1.13) 08/19/19 20:17 Abnormal lab findings: Abnormal Labs 08/19/19 08/19/19 08/19/19 18:33 18:33 20:17 RBC 5.60 H MCV 78 L MCH 26 L Lymph % (Auto) 12.2 L [place] % (Auto) 11.6 H Lymph # 1.1 L [place] # 1.0 H Seg Neutrophils % 75.8 H APTT 37.2 H Sodium 123 L Potassium 3.0 L Chloride 85.5 L Carbon Dioxide 14 L BUN 35 H Creatinine 2.3 H Glucose 142 H Uric Acid Calcium Magnesium AST 706 H ALT 732 H Alkaline Phosphatase 211 H Total Creatine Kinase Total Protein 9.4 H Albumin 3.7 L Urine WBC (Auto) Urine Creatinine Salicylates Acetaminophen 08/19/19 08/19/19 08/19/19 20:17 20:17 20:17 RBC MCV MCH Lymph % (Auto) [place] % (Auto) Lymph # [place] # Seg Neutrophils % APTT Sodium Potassium Chloride Carbon Dioxide BUN Creatinine Glucose Uric Acid 12.4 H Calcium Magnesium 2.70 H AST ALT Alkaline Phosphatase Total Creatine Kinase 1567 H Total Protein Albumin Urine WBC (Auto) Urine Creatinine Salicylates < 0.3 L Acetaminophen < 5.0 L 08/19/19 08/19/19 08/19/19 20:40 Unknown Unknown RBC MCV MCH Lymph % (Auto) [place] % (Auto) Lymph # [place] # Seg Neutrophils % APTT Sodium Potassium Chloride Carbon Dioxide BUN Creatinine Glucose Uric Acid Calcium Magnesium AST 742 H ALT 779 H Alkaline Phosphatase 218 H Total Creatine Kinase Total Protein 9.4 H Albumin 3.8 L Urine WBC (Auto) 17.0 H Urine Creatinine 463.6 H Salicylates Acetaminophen 08/20/19 08/20/19 08/20/19 04:12 04:12 04:12 RBC MCV 78 L MCH 26 L Lymph % (Auto) [place] % (Auto) Lymph # [place] # Seg Neutrophils % APTT Sodium 130 L D Potassium 2.8 L* Chloride 97.8 L Carbon Dioxide 14 L BUN 31 H Creatinine 1.8 H Glucose 118 H Uric Acid Calcium 8.1 L Magnesium AST 566 H ALT 598 H Alkaline Phosphatase 168 H Total Creatine Kinase 1548 H Total Protein Albumin 2.9 L Urine WBC (Auto) Urine Creatinine Salicylates Acetaminophen 08/21/19 08/21/19 07:27 07:27 RBC MCV 78 L MCH 26 L Lymph % (Auto) [place] % (Auto) 13.3 H Lymph # 0.9 L [place] # Seg Neutrophils % APTT Sodium 135 L Potassium 3.2 L Chloride Carbon Dioxide 15 L BUN Creatinine Glucose Uric Acid Calcium Magnesium AST 218 H ALT 397 H Alkaline Phosphatase 149 H Total Creatine Kinase Total Protein Albumin 2.8 L Urine WBC (Auto) Urine Creatinine Salicylates Acetaminophen
[2019-08-21] MEDS: ACETAMINOPHEN 325 MG TAB PO PRN (23:24)
[2019-08-22] MEDS: VANCOMYCIN 250 MG/10 ML ORAL LIQD PO SCH ×3 (02:08→12:15)
[2019-08-22] MEDS: metroNIDAZOLE/NS 500 MG/100 ML 500 MG/100 ML BAG IV SCH ×2 (05:57→13:06)
[2019-08-22] MEDS: SODIUM CHLORIDE 0.9% 1000 ML 1,000 ML IV SCH (05:57)
[2019-08-22 06:37] VITALS: BP 91/52
[2019-08-22] MEDS ORDERED: POTASSIUM CHLORIDE ER 20 MEQ TAB PO ONE (10:00)
[2019-08-22 10:21] LABS: Hematocrit 35.5 % (35.5-45.6); Hemoglobin 11.9 gm/dl (11.8-15.2); Mean Corpuscular HGB Conc 34 % (32-34); Mean Corpuscular Volume 78 fl (84-94); Platelet Count 227 K/mm3 (140-440); Red Blood Count 4.57 M/mm3 (3.65-5.03)
[2019-08-22 10:49] LABS: Alanine Aminotransferase 272 units/L (7-56); Albumin 2.8 g/dL (3.9-5); BUN/Creatinine Ratio 16; Blood Urea Nitrogen 13 mg/dL (9-20); Calcium 8.4 mg/dL (8.4-10.2); Hemolysis Index 5
[2019-08-22] MEDS: cefTRIAXone/NS 1 GM/50 ML 1 GM/50 ML BAG IV SCH (10:50)
[2019-08-22] MEDS: HEPARIN 5,000 UNIT/1 ML VIAL SUB-Q SCH (10:51)
--- NOTE | 2019-08-22 12:49 | Progress Note ---
Assessment and Plan Cultures Blood culture 08/19/2019 no growth to date Urine culture 08/19/2019 no growth to date Stool culture 08/19/2019 no growth to date Assessment: 59 yo M PMHx HTN admitted with a month of chronic abdominal pain and associated weight loss. 1. Weight loss - concern for malignancy, though patient has had fairly recent negative endoscopy screenings. 2. Fever - Minimal risk factors for infectious etiology. Hepatitis is negative. Was in the , as such has risk factor for TB. TB quantiferon is pending, no cavitary disease seen on XR or CT. Follow up HIV serology. CT chest abdomen and pelvis showed left upper lobe pneumonia. 3. FRANKLIN - renally dose antibiotics. Improved. 4. Transaminitis: improving. Etiology unclear. 5. Nausea and vomiting Recs: - OK for discharge on PO Ceftin 500 mg BID + PO Azithromycin 500 mg daily x 5 days - will follow up pending tests: HIV, TB quantiferon in ID clinic - repeat CBC, CMP in 2 weeks in ID clinic (technical support analyst notified, patient also given contact info.) D/W Dr. Medina. Phil Harding MD FACP Infectious Disease Watch Repairer Subjective Date of service: 08/22/19 Principal diagnosis: Abnormal Liver Enzymes Interval history: No fever. Feels well. No cough or shortness of breath. Wants to go home. Objective - Exam Narrative Exam: General Normal appearance, well developed, no acute distress Eyes - PERRLA, EOM intact ENT - Moist mucous membranes, no lymphadenopathy Neck - supple, no noticeable or palpable swelling, redness or rash around throat or on face Heme/lymph - No lymphadenopathy or lymphangitis Cardiovascular - RRR no m/r/g, no JVD, no carotid bruits Lungs - Clear to auscultation, no crackles or wheezes. Skin - No rashes, skin warm and dry, no erythematous areas Abdomen - Normal bowel sounds, abdomen soft and nontender Extremities - No edema, cyanosis or clubbing Musculoskeletal - 5/5 strength, normal range of motion, no swollen or erythematous joints. Neurological Alert and oriented x 3, no gross deficits - Constitutional Vitals: Vital Signs Temp Pulse Resp BP Pulse Ox 98.2 F 70 16 91/52 98 08/22/19 06:23 08/22/19 06:23 08/22/19 06:23 08/22/19 06:23 08/22/19 06:23 Temperature -Last 24 Hours Temperature 98.2 F Temperature 98.1 F Temperature 98.9 F - Labs CBC & Chem 7: 08/22/19 10:10 08/22/19 10:10 Labs: Abnormal lab results 08/22/19 08/22/19 Range/Units 10:10 10:10 WBC 3.1 L (4.5-11.0) K/mm3 MCV 78 L (84-94) fl MCH 26 L (28-32) pg Potassium 3.4 L (3.6-5.0) mmol/L Carbon Dioxide 16 L (22-30) mmol/L Glucose 141 H (75-100) mg/dL AST 105 H (5-40) units/L ALT 272 H (7-56) units/L Alkaline Phosphatase 153 H (35-129) units/L Albumin 2.8 L (3.9-5) g/dL - Imaging and cardiology CT scan - chest: report reviewed, image reviewed (left upper lobe pneumonia, patchy airspace disease)
--- NOTE | 2019-08-22 14:11 | Discharge Summary ---
Providers - Providers Date of Admission: 08/19/19 20:45 Date of discharge: 08/22/19 Attending physician: TIM FLAHERTY 08/20/19 02:45 Consult to Dietitian/Nutrition [CONS] Routine Physician Instructions: Reason For Exam: Reason for Consult: Poor oral intake 08/20/19 08:08 Consult to Physician [CONS] Routine Comment: Consulting Provider: SARAI JACKSON Physician Instructions: Reason For Exam: Elevated LFT,nausea,vomiting,diarrhea 08/20/19 08:11 Consult to Physician [CONS] Routine Comment: Consulting Provider: AMRIT GÓMEZ Physician Instructions: Reason For Exam: Fever,diarrhea,weight loss 08/21/19 12:31 Consult to Physician [CONS] Routine Comment: Consulting Provider: YANG FLANNERY Physician Instructions: Reason For Exam: GAVINO opacity Primary care physician: CAB STATION ATTENDANT Hospitalization Condition: Serious Hospital course: 59 YO Male with HTN presents to ED for evaluation. Pt states that he has experienced multiple episodes of vomiting, nausea, diarrhea, subjective fever, chills, malaise and weakness over the past 1 month with persistent symptoms over the same time frame. Pt also reports 20lbs weight loss over the past 6 weeks. Pt transported to [facility] via private vehicle. Pt seen and evaluated in ED and found to have FRANKLIN, Acidosis, and elevated Liver Function tests. Pt placed in o bservation status, and admitted to medical floor. Pt denies chest pain, palpitations, trauma, BRBPR, ingestion of food/water from new or different sources, HIV risk factory, IV drug use, or known ill contacts. Discharge diagnosis and Mx: /Acute kidney injury IVF resuscitation therapy, monitor uop q shift, now resolved urine electrolytes, HIV serology, /Acidosis IVF resuscitation therapy, IV bicarbonate therapy. /GAVINO patchy opacity Pulmonology and ID Physician consulted placed on IV Rocephin and Vancomycin TB quantiferon is pending, no cavitary disease seen on XR or CT. Ordered HIV serology. CT chest abdomen and pelvis showed left upper lobe pneumonia. ID cleared for discharge on PO Ceftin 500 mg BID + PO Azithromycin 500 mg daily x 5 days Will f/u pending labs as outpt /nausea, vomiting, Diarrhea Resolved /Hypokalemia, repleted /Hyponatremia, improved with IV fluid / Elevated liver enzymes, improved Hepatitis panel, LFT, supportive care, HIV testing - ordered Consulted GI, negative hepatitis panel Further f/u outpt /weight loss for 1 month HIV ordered /DVT prophylaxis SCD to BLE while in bed, Pt ambulatory Disposition: home with outpt f/u Disposition: DC-01 TO HOME OR SELFCARE Time spent for discharge: 34 minutes Core Measure Documentation - Palliative Care Palliative Care/ Comfort Measures: Not Applicable - Core Measures Any of the following diagnoses?: history only Exam - Constitutional Vitals: Temp Pulse Resp BP Pulse Ox 98.2 F 70 16 91/52 98 08/22/19 06:23 08/22/19 06:23 08/22/19 06:23 08/22/19 06:23 08/22/19 06:23 General appearance: Present: no acute distress - EENT Eyes: Present: PERRL ENT: hearing intact, clear oral mucosa - Neck Neck: Present: supple, normal ROM - Respiratory Respiratory effort: normal Respiratory: bilateral: CTA - Cardiovascular Heart Sounds: Present: S1 & S2. Absent: rub, click - Extremities Extremities: pulses symmetrical, No edema Peripheral Pulses: within normal limits - Abdominal General gastrointestinal: Present: soft, non-tender, non-distended, normal bowel sounds - Integumentary Integumentary: Present: clear, warm, dry - Musculoskeletal Musculoskeletal: gait normal, strength equal bilaterally - Psychiatric Psychiatric: appropriate mood/affect, intact judgment & insight - Neurologic Neurologic: CNII-XII intact, moves all extremities Plan Activity: advance as tolerated Weight Bearing Status: Weight Bear as Tolerated Diet: regular Follow up with: PRIMARY MD RAUL [Primary Care Provider] - 7 Days ALMA DELIA DUARTE MD [Staff Physician] - 7 Days YSABEL MALDONADO MD [Staff Physician] - 7 Days Prescriptions: cefUROXime [Ceftin] 500 mg PO Q12H 7 Days ALBUTEROL Inhaler (OR & NICU) [ProAir HFA Inhaler] 2 puff IH QID PRN #8.5 gram PRN Reason: Shortness Of Breath Azithromycin [Zithromax TAB] 500 mg PO QDAY #5 tablet
--- NOTE | 2019-08-23 00:09 | Consultation ---
CONSULTING PHYSICIAN: Dr. Chou. REASON FOR CONSULTATION: Left upper lobe opacity. CHIEF COMPLAINT AND HISTORY OF PRESENT ILLNESS: As follows: The patient is a 59-year-old -[place] male with past medical history of which he denies any really, came into the Emergency Room complaining of multiple episodes of nausea, vomiting, diarrhea, subjective fevers and chills and weakness that had been going on for about a month. He also reported a 20-pound weight loss in about a two-month period. In the ER, he was found to have an acute kidney injury, metabolic acidosis and elevated liver function tests. He was initially placed in observation status, then admitted to the medical floor. He had denied any chest pains or palpitations. He denied any hemoptysis. He denied any overt aspiration. He denied episodes of vomiting with him lying flat in bed. He denied any sick contacts. He denied any recent travel or long distance travel. He denied any exposure to exotic pets at home or birds. He denied any exposures to wild animals. He has not been going hunting. He has not traveled out of the [place] area. Imaging revealed amongst other thing, opacification in the left lung. We are asked to assist with management. When I stopped by to see him, he was resting in bed on room air, felt better. Denied any respiratory symptoms. He denied any flu-like symptoms also prior. Denied any rhinorrhea. He denied any muscle aches. He denies a history of arthralgias, history of Raynaud's type phenomenon. With regards to tobacco use or abuse history, he had denied a history of tobacco use and he denied any risky sexual practices. This really is as much of the history as I have. PAST MEDICAL HISTORY: As above. PAST SURGICAL HISTORY: Denies. MEDICATIONS: He was on at the time I stopped by to see him were reviewed. Pertinent medications included the following: Tylenol 650 mg p.o. q. 6 hours p.r.n. mild pain or fevers, albuterol 2.5 mg nebulized q. 4 hours, heparin 5000 units subcutaneous q. 12 hours, Flagyl 500 mg IV q. 8 hours, Rocephin 1 gram IV q. 24 hours, Zofran 4 mg IV q. 8 hours and vancomycin 125 mg p.o. q. 6 hours. ALLERGIES: No known drug allergies. DIET: Well-built gentleman. He does describe 20 plus pound weight loss in the past 6-8 weeks. FAMILY AND SOCIAL HISTORY: Lives in the community. Denies alcohol, tobacco or illicit drug use or abuse. Denies any occupational exposures to known pulmonary toxins or fumes. There is a family history of hypertension. REVIEW OF SYSTEMS: No loss of consciousness. No new onset seizures. No new onset focal weakness. Denies heat or cold intolerance. Denies polydipsia. Denies polyuria. Denies hematochezia. Denies melena. Complete 13-system review of systems obtained. Pertinent positives and/or negatives as in body of history above, otherwise noncontributory. PHYSICAL EXAMINATION: VITAL SIGNS: On examination at presentation, he had a temperature of 98.9 degrees Fahrenheit, pulse 129, respiratory rate of 20, blood pressure 125/89, O2 sats were 96%, inspired oxygen concentration at that time was not recorded. When I stopped by to see him, O2 sats were 98% that was on room air. Since he has been here, he has had intermittent fevers, T-max of 101.4 degrees Fahrenheit a couple of days ago. GENERAL: Again, middle-aged -[place] male. Normocephalic, atraumatic, resting in bed with normal respiratory effort at rest. HEAD, EYES, EARS, NOSE AND THROAT: He is anicteric. No conjunctival erythema. Oropharynx was moist. Mallampati #3 oropharynx. No gross jugular venous distention, no thyromegaly. NECK: Grossly, there were no palpable lymph nodes in the supraclavicular or submandibular lymph node chains. LUNGS: Auscultation of both lung scott really unremarkable. Good bilateral air movement, no egophony and no dullness to percussion. HEART: Heart sounds 1 and 2 are heard. They were regular in rate and rhythm at time of my evaluation without rubs or murmurs. ABDOMEN: Soft, full, bowel sounds are positive, nontender, no palpable hepatosplenomegaly. EXTREMITIES: Without overt digital clubbing, no cyanosis, no pedal edema. Pedal pulses are 2+ bilaterally. NEUROLOGIC: Pupils are equal, round, about 4 mm, reactive to light. Extraocular muscle movements were intact. He moves all 4 extremities spontaneously. SKIN: Normal turgor in the areas evaluated without overt cellulitis or rash. PSYCHIATRIC: Mood was normal. Affect was appropriate. He had intact judgment and insight. LABORATORY DATA: From my review are as follows: Admission white cell count 8900, hemoglobin 14.5, hematocrit 43.6, platelet count was 237. No manual differential was done at that time. INR within normal limits. Serum sodium was 123, potassium 3.0, chloride was 86, bicarbonate was 14, BUN 35, creatinine 2.3, glucose was 142. Lactic acid level was within normal limits. AST was elevated at 706, ALT 732, bilirubin was within normal limits. TSH within normal limits. Urinalysis, 17 white blood cells per high power field; however, negative for nitrites and leukocyte esterase. He also had large blood in the urine. Tylenol and aspirin levels are within normal limits. C. diff toxin, PCR was negative. Hepatitis screen, influenza screens were all negative. Blood cultures, stool cultures, urine cultures, no growth to date. Radiographic studies were reviewed. A chest x-ray was done. It does show some hazy opacification in the left mid lung zones. A CT of the chest was also done, not a CT angiogram, and essentially it seems to be a contrast CT though. There is some opacification of the pulmonary arteries. I do not see any gross filling defects. The main finding is a left upper lobe/lingular infiltrate. Small pleural effusion on the left with consolidation noticed. There may be some baseline cystic lung disease, difficult to tell. The rest of the pulmonary parenchyma appears to be normal. He does have an AP window node measuring about 1.1 cm and some mild hilar adenopathy on the left side. ASSESSMENT: 1. Left upper lobe pneumonia. 2. Viral syndrome. 3. Acute kidney injury. 4. Possible pulmonary renal syndrome. 5. Hyponatremia. 6. Hypokalemia. 7. Elevated serum transaminases. 8. Unexplained weight loss. PLAN: I do feel that we should treat this like a community-acquired pneumonia with a followup obviously of the CT scan or chest x-ray actually to evaluate for clearing. I do feel that these are reactive pulmonary nodules in the mediastinum. However, he comes in with an acute kidney injury and I could not rule out a pulmonary renal syndrome. He does not have significant hemoptysis. He does not have significant anemia. He will benefit from testing serologies and MENDOZA level will be ordered. If that is abnormal, I will go ahead and order ANCA serologies. I also note that his CPK levels are elevated, there may be an element of rhabdomyolysis at play and pulmonary pneumonia could well be a red whitaker unconnected to the renal disease. Sputum will be sent for Gram stain, cultures and sensitivities if he is able to cough up any. He will be continued on DVT prophylaxis. He will be placed on GI prophylaxis. Flu and pneumonia vaccination will be per protocol. Thank you very much for the consult. We will follow along and make further recommendations as picture progresses/becomes clearer. He definitely will need outpatient pulmonary followup as if this is persistent, he will need further workup. JOB# [id number] DELTA/GAGANDEEP
[2019-08-27 11:12] LABS: HIV-1 Antibody Differentiation SEE SCANNED RESULT; HIV-2 Antibody Differentiation SEE SCANNED RESULT
== END 2019-08-22 14:31 | disposition home or self-care (01) | DRG 682 ==
LOC: ED 17:52 → 3A 20:45 → OBSVTOIN 20:45
PROVIDERS: ADMIT Internal Medicine; ATTEND Internal Medicine
DX: N17.9 Acute kidney failure, unspecified (principal); J18.9 Pneumonia, unspecified organism; E87.2 Acidosis; E87.1 Hypo-osmolality and hyponatremia; I10 Essential (primary) hypertension; G89.29 Other chronic pain; R79.89 Other specified abnormal findings of blood chemistry; E87.6 Hypokalemia; R65.10 Systemic inflammatory response syndrome (SIRS) of non-infectious origin without acute organ dysfunction; Z79.51 Long term (current) use of inhaled steroids; Z82.49 Family history of ischemic heart disease and other diseases of the circulatory system
CPT/HCPCS: 36415; 71045; 71260; 74177; 76705; 80053; 80074; 80076; 80320; 81001; 82140; 82550; 82570; 83735; 83935; 84132; 84300; 84443; 84550; 85025; 85027; 85610; 85730; 86689; 86780; 87040; 87045; 87086; 87324; 87400; 87493; 96365; G0378; G0480; J0696; J1644; J2405; J3370; J3475; J3480; J7030; Q0162; Q9966